=== PATIENT | male | born 1975 | race Caucasian/White ===

== ENCOUNTER 2020-12-03 13:24 | Emergency (ER) | payer OTHER, SELFPAY ==
[2020-12-03] VITALS (22 sets, daily range): BP systolic 117–153; BP diastolic 68–94; PULSE 77–94; RESP 16–24; TEMP 36.7; O2SAT 90–100
--- NOTE | ~2020-12-03 | XR_ITS ---
EXAMINATION: XR chest 1V portable 12/03/2020 14:26 INDICATION: Lower extremity swelling. PROCEDURE: AP portable chest COMPARISON: 10/13/2018 FINDINGS: The lungs are clear. The cardiomediastinal silhouette is within normal limits. There are no pleural effusions. There is no pneumothorax suspected. IMPRESSION: 1: NO ACUTE CARDIOPULMONARY DISEASE. Reviewed, dictated and finalized at location B.
--- NOTE | 2020-12-03 14:16 | PC.NURSE ---
xray at bedside.
--- NOTE | 2020-12-03 14:24 | ED.GENADULT ---
HPI - General Adult General Chief complaint: Extremity Problem,Nontraumatic Stated complaint: ankle swelling Time Seen by Provider: 12/03/20 13:43 Source: patient Mode of arrival: ambulatory Limitations: no limitations History of Present Illness HPI narrative: Patient with history of diabetes and hypertension presents with chief complaint of increased swelling to his lower extremities over the past few weeks. Patient especially over the past 2 to 3 days he has noticed more swelling to his left ankle than his right. Patient denies any pain, erythema or wounds. Patient denies any injuries. Patient states he was not sure what he should do regarding the issues. He denies being on his feet more often. He denies chest pain, shortness of breath, nausea, vomiting, diarrhea, fever, chills. He denies history of CHF or thyroid dysfunction. Related Data Home Medications Medication Instructions Recorded Confirmed carvedilol phosphate 10 mg PO 12/03/20 lisinopril-hydrochlorothiazide tablet PO 12/03/20 pantoprazole 40 PO 12/03/20 Allergies Allergy/AdvReac Type Severity Reaction Status Date / Time No Known Allergies Allergy Unverified 12/03/20 13:32 Review of Systems Review of Systems: Narrative: CONSTITUTIONAL: Denies fever, chills, or sweats. EYES: Denies visual changes, redness, or discharge. ENT: Denies rhinorrhea, congestion, sore throat, or otalgia. CARDIOVASCULAR: Denies chest pain, palpitations, or edema. RESPIRATORY: Denies cough or dyspnea. GASTROINTESTINAL: Denies abdominal pain, nausea, vomiting, or diarrhea. GENITOURINARY: Denies dysuria or hematuria. SKIN: Denies rash or itching. MUSCULOSKELETAL: Reports some ankle swelling denies back pain, myalgia, or joint pain NEUROLOGIC: Denies headache, numbness, dizziness, or weakness. PSYCHIATRIC: Denies anxiety or depression. Exam Narrative: Exam Narrative: GENERAL: Well-appearing, well-nourished. HEAD: Normocephalic, atraumatic. EYES: PERRLA and EOMI. NECK: Supple. No adenopathy or masses. No vertebral tenderness or loss of ROM. CHEST: Clear to auscultation. No respiratory distress. No wheezes rales or rhonchi HEART: Regular rate and rhythm. Normal peripheral pulses. EXTREMITIES: No acute changes in ROM. No erythema or pain. Mild swelling to ankles. No pitting edema. No calf pain. Homans' sign negative. SKIN: Warm, dry, no rash. NEURO: No focal deficits. Alert and oriented x3. PSYCH: Normal mood and affect. Course Vital Signs Vital signs: Vital Signs Temperature 98.1 F 12/03/20 13:28 Pulse Rate 91 12/03/20 13:28 Respiratory Rate 20 12/03/20 13:28 Blood Pressure 146/85 H 12/03/20 13:28 Pulse Oximetry 98 12/03/20 13:28 Temperature 98.1 F 12/03/20 13:28 Pulse Rate 79 12/03/20 16:02 Respiratory Rate 16 12/03/20 16:02 Blood Pressure 117/84 12/03/20 16:02 Pulse Oximetry 98 12/03/20 16:02 Medical Decision Making MDM Narrative Medical decision making narrative: Patient's labs are stable. No signs of renal failure or CHF. Patient does not have any signs of DVT.Patient instructed to follow-up with primary care for further investigation into his symptoms. Vital Signs Vital Signs: Vital Signs Temperature 98.1 F 12/03/20 13:28 Pulse Rate 91 12/03/20 13:28 Respiratory Rate 20 12/03/20 13:28 Blood Pressure 146/85 H 12/03/20 13:28 Pulse Oximetry 98 12/03/20 13:28 Temperature 98.1 F 12/03/20 13:28 Pulse Rate 79 12/03/20 16:02 Respiratory Rate 16 12/03/20 16:02 Blood Pressure 117/84 12/03/20 16:02 Pulse Oximetry 98 12/03/20 16:02 Lab Data Result diagrams: 12/03/20 14:22 12/03/20 14:22 Labs: Lab Results 12/03/20 12/03/20 Range/Units 14:22 14:22 WBC 7.4 (4.5-10.0) K/mm3 RBC 4.80 (4.6-6.20) M/mm3 Hgb 15.3 (14.0-18.0) g/dL Hct 42.3 (42.0-52.0) % MCV 88.1 (80-100) fl MCH 31.9 (26-34) pg MCHC 36.2 H (32-36) g/dl RDW 12.4
[2020-12-03 14:34] LABS: Basophils Absolute Auto 0.1 K/mm3 (0.0-0.1); Basophils Percent Auto 0.7 % (0.2-1.2); Eosinophils Absolute Auto 0.2 K/mm3 (0-0.3); Eosinophils Percent Auto 3.2 % (0-4.4); Hematocrit 42.3 % (42.0-52.0); Hemoglobin 15.3 g/dL (14.0-18.0); Immature Granulocyte Absolute 0.02 K/mm3 (0.00-0.031); Immature Granulocyte Percent A 0.3 % (0-0.5); Lymphocytes Absolute Auto 2.72 K/mm3 (0.9-3.2); Lymphocytes Percent Auto 36.7 % (18.3-44.2); Mean Corpuscular HGB Conc 36.2 g/dl (32-36); Mean Corpuscular Hemoglobin 31.9 pg (26-34); Mean Corpuscular Volume 88.1 fl (80-100); Mean Platelet Volume 9.9 fl (7.4-10.4); Monocytes Absolute Auto 0.6 K/mm3 (0.1-0.6); Monocytes Percent Auto 8.5 % (2.6-8.5); Neutrophils Absolute Auto 3.8 K/mm3 (1.3-6.7); Neutrophils Percent Auto 50.6 % (45.5-73.1); Platelet Count Result 195 k/mm3 (150-375); Red Cell Distribution Width 12.4 % (11.5-14.5); White Blood Count 7.4 K/mm3 (4.5-10.0)
[2020-12-03 14:46] LABS: Alanine Aminotransferase 212 U/L (4-50); Albumin Level 4.7 g/dL (3.5-5.1); Alkaline Phosphatase 66 U/L (38-126); Anion Gap 8 mmol/L (8-16); Aspartate Amino Transferase 122 U/L (17-59); Bilirubin,Total 1.1 mg/dL (0.2-1.3); Blood Urea Nitrogen 13 mg/dL (9-20); Calcium 9.3 mg/dL (8.4-10.2); Carbon Dioxide 29 mmol/L (22-30); Chloride 101 mmol/L (98-107); Estimated CRCL calculation 101 ml/min; Estimated Glomerular Filt Rate > 60; Glucose 211 mg/dL (75-110); Potassium 3.7 mmol/L (3.4-5.0); Sodium 138 mmol/L (137-145)
[2020-12-03 14:54] LABS: NT Pro B Type Natriuretic Pept < 11 PG/ML (5-100)
== END 2020-12-03 16:00 | disposition home or self-care (01) ==
PROVIDERS: Physician Assistant; Emergency Provider Emergency Medicine
DX: R60.0 Localized edema (principal); E11.9 Type 2 diabetes mellitus without complications; I10 Essential (primary) hypertension
CPT/HCPCS: 36415; 71045; 80053; 83880; 84443; 85025; 99283

== ENCOUNTER 2022-02-20 16:52 | Observation (INO) | payer OTHER, SELFPAY ==
[2022-02-20] VITALS (12 sets, daily range): BP systolic 113–154; BP diastolic 69–112; PULSE 73–90; RESP 14–21; TEMP 36.5–36.9; O2SAT 94–99
--- NOTE | ~2022-02-20 | XR_ITS ---
EXAMINATION: XR chest 2V Exam Date/Time: 02/20/2022 17:10 CDT HISTORY: CHEST DISCOMFORT INTO LT SIDE THROAT,SOB,HTN,DIABETES Comparison: 12/03/2020. RESULT: Lines, tubes, and devices: None. Lungs and pleura: Clear. Cardiomediastinal silhouette: Stable cardiomediastinal silhouette. Other: No acute osseous or upper abdominal finding. IMPRESSION: No acute cardiopulmonary process. Reviewed, dictated and finalized at location K.
--- NOTE | ~2022-02-20 | NM_ITS ---
EXAMINATION: NM stress w perf spect multi DATE: 02/21/2022 11:57 INDICATION: Chest pain TECHNIQUE: Rest images were obtained following intravenous administration of 10.2 mCi Tc99m tetrofosm in ([employer]). The patient performed an exercise activity. At peak exercise, 31.7 mCi Tc99m tetrofosmi n ([employer]) was administered intravenously, and stress images were obtained. Data was reconstructed i nto short axis and horizontal and vertical long axis SPECT images. Gated SPECT images were also obtai jason. COMPARISON: None. FINDINGS: There is normal left ventricular perfusion without definite evidence of reversible or fixed perfusion abnormality to suggest ischemia or infarction. There is normal left ventricular chamber size, wall motion and ejection fraction. Left ventricular ejection fraction measures >70%. IMPRESSION: 1. Normal myocardial perfusion at rest and during stress. 2. Left ventricular ejection fraction measuring >70%. Reviewed, dictated and finalized at location A.
--- NOTE | 2022-02-20 16:52 | ECG_ITS ---
Measurements Intervals [place] Rate: 89 P: 30 NH: 171 QRS: -25 QRSD: 102 T: 33 QT: 355 QTc: 432 Interpretive Statements SINUS RHYTHM LEFT ATRIAL ENLARGEMENT LEFTWARD AXIS Electronically Signed On 02-21-2022 11:15:59 CDT by Ar Joseph M.D.
[2022-02-20 17:08] LABS: Basophils Absolute Auto 0.1 K/mm3 (0.0-0.1); Basophils Percent Auto 0.7 % (0.2-1.2); Eosinophils Absolute Auto 0.2 K/mm3 (0-0.3); Eosinophils Percent Auto 2.3 % (0-4.4); Hematocrit 45.4 % (42.0-52.0); Hemoglobin 16.2 g/dL (14.0-18.0); Immature Granulocyte Absolute 0.01 K/mm3 (0.00-0.031); Immature Granulocyte Percent A 0.1 % (0-0.5); Lymphocytes Absolute Auto 3.67 K/mm3 (0.9-3.2); Lymphocytes Percent Auto 41.7 % (18.3-44.2); Mean Corpuscular HGB Conc 35.7 g/dl (32-36); Mean Corpuscular Volume 86.8 fl (80-100); Mean Platelet Volume 9.8 fl (7.4-10.4); Monocytes Absolute Auto 0.7 K/mm3 (0.1-0.6); Monocytes Percent Auto 8.3 % (2.6-8.5); Neutrophils Absolute Auto 4.1 K/mm3 (1.3-6.7); Neutrophils Percent Auto 46.9 % (45.5-73.1); Platelet Count Result 209 k/mm3 (150-375); Red Blood Count 5.23 M/mm3 (4.6-6.20); Red Cell Distribution Width 13.2 % (11.5-14.5); White Blood Count 8.8 K/mm3 (4.5-10.0)
[2022-02-20 17:18] LABS: Alanine Aminotransferase 66 U/L (6-50); Albumin Level 5.2 g/dL (3.5-5.1); Alkaline Phosphatase 74 U/L (38-126); Anion Gap 12 mmol/L (8-16); Aspartate Amino Transferase 38 U/L (17-59); Bilirubin,Total 0.7 mg/dL (0.2-1.3); Blood Urea Nitrogen 14 mg/dL (9-20); Calcium 9.7 mg/dL (8.4-10.2); Carbon Dioxide 24 mmol/L (22-30); Chloride 102 mmol/L (98-107); Estimated Glomerular Filt Rate > 60; Glucose 173 mg/dL (65-110); Lipase 39 U/L (23-300); Potassium 3.9 mmol/L (3.4-5.0); Sodium 138 mmol/L (137-145)
[2022-02-20 17:19] LABS: Prothrombin Time 12.6 Seconds (11.1-14.7)
[2022-02-20 17:20] LABS: Partial Thromboplastin Time 29.3 SECONDS (22.3-36.8)
[2022-02-20 17:29] LABS: Troponin I < 0.012 ng/mL (0.000-0.034)
--- NOTE | 2022-02-20 18:01 | ED.CHESTPAIN ---
HPI - Chest Pain General Chief Complaint: Chest Pain Stated Complaint: CHEST DISCOMFORT/DIZZY FOR ONE WEEK Time Seen by Provider: 02/20/22 17:36 Source: patient and RN notes reviewed Mode of arrival: ambulatory Limitations: no limitations History of Present Illness HPI narrative: This is a 46 year old male with history of dizziness and chest pain. Patient states for past 1.5 weeks he has been having episodes of dizziness and chest tightness. He has episodes that last approximately 20 minutes in which he gets diaphoretic and feels like he is going to pass out. He does not always have chest pain when these events. He is also having midsternal chest pain that radiates to his left shoulder that he describes as tightness. This pain may have at rest, and it is now worse with exertion. He has shortness of breath with these episodes of chest tightness. He denies nausea, vomiting, cough, abdominal pain, melena, leg swelling or calf pain. complaint: chest discomfort Onset (ago): week(s) Related Data Home Medications Medication Instructions Recorded Confirmed lisinopril 20 tablet PO 12/03/20 mg-hydrochlorothiazide 12.5 mg tablet pantoprazole 40 mg tablet,delayed 40 PO 12/03/20 release insulin regular human 100 unit/mL 1 sliding scale dose subcut 02/20/22 02/20/22 injection solution (Novolin R USEASDIRECTD Regular U-100 Insulin) Allergies Allergy/AdvReac Type Severity Reaction Status Date / Time No Known Allergies Allergy Unverified 02/20/22 18:03 Review of Systems Review of Systems: All systems reviewed & are unremarkable except as noted in HPI and below Constitutional: Constitutional: Denies chills, Denies fatigue and Denies fever(s) Eyes: Eyes: Denies change in vision ENT: Denies sore throat Cardiovascular: Cardiovascular: Reports chest pain, Reports radiating jaw, neck or arm pain and Denies slow heart rate Respiratory: Respiratory: Denies chest congestion, Denies cough and Reports dyspnea Gastrointestinal: Gastrointestinal: Denies abdominal pain, Denies bloating, Denies diarrhea, Denies nausea and Denies vomiting Musculoskeletal: Musculoskeletal: Reports back pain Neurologic: Reports dizziness PMFSH Past Medical History Medical History (Updated 02/20/22 @ 20:00 by Emerald Romo MD) Diabetes mellitus Hypertension Course Reevaluation(s) Reevaluation #1: PAtient is agreeable for observation. Dr. Ross agrees to consult. Dr. rosen accepts for observation in IMU. Date: 02/20/22 Time: 19:59 Vital Signs Vital signs: Vital Signs Temperature 98.4 F 02/20/22 17:02 Pulse Rate 90 02/20/22 17:02 Respiratory Rate 14 02/20/22 17:02 Blood Pressure 141/93 H 02/20/22 17:02 Pulse Oximetry 96 02/20/22 17:02 Oxygen Delivery Room Air 02/20/22 17:02 Temperature 98.4 F 02/20/22 17:02 Pulse Rate 89 02/20/22 18:44 Respiratory Rate 21 H 02/20/22 17:52 Blood Pressure 113/81 02/20/22 18:44 Pulse Oximetry 99 02/20/22 17:56 Oxygen Delivery Room Air 02/20/22 17:56 MDM - Chest Pain Lab Data Attestation: I reviewed the patient's lab results. Result diagrams: 02/20/22 17:00 02/20/22 17:00 Labs: Lab Results 02/20/22 02/20/22 02/20/22 Range/Units 17:00 17:00 17:00 WBC 8.8 (4.5-10.0) K/mm3 RBC 5.23 (4.6-6.20) M/mm3 Hgb 16.2 (14.0-18.0) g/dL Hct 45.4 (42.0-52.0) % MCV 86.8 (80-100) fl MCH 31.0 (26-34) pg MCHC 35.7 (32-36) g/dl RDW 13.2 (11.5-14.5) % Plt Count 209 (150-375) k/mm3 MPV 9.8 (7.4-10.4) fl Immature Gran % (Auto) 0.1 (0-0.5) % Neut % (Auto) 46.9 (45.5-73.1) % Lymph % (Auto) 41.7 (18.3-44.2) % Tift % (Auto) 8.3 (2.6-8.5) % Eos % (Auto) 2.3 (0-4.4) % Baso % (Auto) 0.7 (0.2-1.2) % Lymph # (Auto) 3.67 H (0.9-3.2) K/mm3 Tift # (Auto) 0.7 H (0.1-0.6) K/mm3 Eos # (Auto) 0.2 (0-0.3) K/mm3 Baso # (Auto) 0
[2022-02-20 18:23] LABS: Magnesium 2.1 mg/dL (1.6-2.3)
[2022-02-20 18:28] LABS: D Dimer < 0.27 ug/mL (<0.48)
[2022-02-20 20:21] LABS: Troponin I < 0.012 ng/mL (0.000-0.034)
--- NOTE | 2022-02-20 23:12 | PM.IMHP ---
H&P: HPI History of Present Illness Date/Time: 02/20/22 22:30 Chief Complaint: Chest pain Narrative: 46-year-old male with past medical history of hypertension, hyperlipidemia, GERD and prior tobacco use who presented to the ER via private vehicle from home due to chest pain. The patient reports that for the last 1.5 weeks he has been having intermittent at central chest pain that radiates up into his neck and occasionally down into his left arm. He describes the pain is a aching and tightness. He reports that the pain can last 10-15 minutes. He reported that today he did have an episode of cold clammy sweats. He reports that he feels as if his heart is beating hard. He denies any palpitations. He took 2 aspirin at home he does not know the strength. He also got 1 dose of full-dose aspirin in the ER. He has not had any lower extremity swelling. Also reports episodes of a what sounds like lightheadedness as if he may pass out and that his vision changes. He denies is room specifically spinning. He he reports that it he has to stand upper jerk himself to get rid of this sensation. The sensation stated not necessarily company his chest pain. He does snore loudly. He has been using Primatene mist [id number] for or shortness of breath. He denies any cough or congestion. He reports that he had treadmill stress test when he was 27 years old that was normal. He does have history of GERD and has had normal EGD in the past. His primary care provider's mentions that the patient may need to go for repeat EGD given his heartburn symptoms. The patient reports that his current episodes of pain are different than his usual heartburn. He has not been vaccinated for COVID but did have COVID-28 August 2021. Review of Systems Review of Systems: 12 systems were reviewed with pertinent positives and negatives per HPI. Except as documented in the HPI, all other systems were reviewed and are negative. [facility] Past Medical History Medical History (Updated 02/21/22 @ 03:29 by Michelle Fabian DO) Diabetes mellitus GERD (gastroesophageal reflux disease) Hyperlipidemia Hypertension Obesity (BMI 30.0-34.9) Surgical History Surgical History (Updated 02/21/22 @ 03:29 by Michelle Fabian DO) History of esophagogastroduodenoscopy (EGD) (~2015) History of tonsillectomy (~2003) History of uvulopalatopharyngoplasty (~2003) Normal colonoscopy (~2015) Family History Family History Father Liver cancer Mother Multiple sclerosis Sibling Diabetes mellitus Social History Social History (Updated 02/21/22 @ 03:33 by Michelle Fabian DO) Smoking packs per day: 0.5 Smoking cigarettes per day: 10.0 Years smoked: 20 Smoking pack-years: 10.00 Smoking status: Former smoker Additional smoking assessment comments: He smoked 0.5 packs cigarettes per day for 20 years and quit in 2011. Alcohol intake: current Alcohol use details: 0.5 pint per day Substance use: never Additional living arrangements comments: He is single. He does not have any children. 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 Spiritual care concerns: No Meds Home Medications and Allergies Home Medications Medication Instructions Recorded Confirmed Type lisinopril 20 1 tablet PO DAILY 12/03/20 02/20/22 History mg-hydrochlorothiazide 12.5 mg tablet pantoprazole 40 mg tablet,delayed 40 mg PO DAILY 12/03/20 02/20/22 History release epinephrine 0.125 mg/actuation 1 puff inhalation Q4H PRN 02/20/22 02/20/22 History aerosol inhaler (Primatene Mist) Shortness Of Breath Or Wheezing insulin regular human 100 unit/mL 1 sliding scale dose subcut 02/20/22 02/20/22 History injection solution (Novolin R USEASDIRECTD Regular U-100 Insulin) sodium chloride 0.65 % nasal mist 2 spray intranasal DAILY 02/20/22 02/20/22 History Allergies Allergy/AdvR
--- NOTE | 2022-02-20 23:18 | ADMGEN ---
This patient, Luis Fleming, was admitted to IMU Room 209-01. Patient/family oriented to hospital policies and general routines including ID bracelet, bed and alarms, visiting hours, pain management, procedures, bathroom and other care routines, personal items, smoking policy, room service/diet, and visiting hours. Information on how to activate the Rapid Response Team has been discussed. Patient/Family are encouraged to report perceived risks to care and to ask questions if they do not understand what they are told or what they should do.
[2022-02-20 23:27] LABS: Troponin I < 0.012 ng/mL (0.000-0.034)
[2022-02-21] VITALS (8 sets, daily range): BP systolic 106–121; BP diastolic 69–78; PULSE 67–81; RESP 16–20; TEMP 36.5–36.8; O2SAT 99
--- NOTE | 2022-02-21 | EST_ITS ---
Patient Info Name: Luis Fleming Age: 46 years : 1975 Gender: Male Ht: 67 in Wt: 220 lbs BSA: 2.21 m2 HR: 74 bpm BP: 118 / 84 mmHg Heart Rhythm: Sinus Rhythm Exam Date: 02/21/2022 10:42 AM Exam Location: [facility] Stress Patient Status: Outpatient Admit Date: 02/20/2022 Staff Ordering Physician: Michelle Fabian DO Attending Provider: Michelle Fabian DO Exercise Technologist: Sade Saab CT Exercise Physician: Maxime Hankins MD Exam Type: CA stress test treadmill w NM Study Info Indications R07.9 - Chest pain, unspecified A nuclear stress test was performed. Summary 1. Please correlate with nuclear medicine images, reported separately. 2. No abnormal ST-T wave changes with exercise. Protocol: Vipul Stress ECG Details Stage: REST Duration (min): 1 min : 7 sec Speed (mph): 0.0 Grade (%): 0 HR (bpm): 78 SBP (mmHg): 118 DBP (mmHg): 84 METS: --- Stage: REST Duration (min): 15 min : 9 sec Speed (mph): 0.0 Grade (%): 0 HR (bpm): 82 SBP (mmHg): 118 DBP (mmHg): 84 METS: --- Stage: STAGE 1 Duration (min): 1 min : 0 sec Speed (mph): 1.7 Grade (%): 10 HR (bpm): 98 SBP (mmHg): 118 DBP (mmHg): 84 METS: --- Stage: STAGE 1 Duration (min): 2 min : 0 sec Speed (mph): 1.7 Grade (%): 10 HR (bpm): 103 SBP (mmHg): 118 DBP (mmHg): 84 METS: --- Stage: STAGE 1 Duration (min): 3 min : 0 sec Speed (mph): 1.7 Grade (%): 10 HR (bpm): 105 SBP (mmHg): 137 DBP (mmHg): 65 METS: --- Stage: STAGE 2 Duration (min): 1 min : 0 sec Speed (mph): 2.5 Grade (%): 12 HR (bpm): 114 SBP (mmHg): 137 DBP (mmHg): 65 METS: --- Stage: STAGE 2 Duration (min): 2 min : 0 sec Speed (mph): 2.5 Grade (%): 12 HR (bpm): 120 SBP (mmHg): 166 DBP (mmHg): 74 METS: --- Stage: STAGE 2 Duration (min): 3 min : 0 sec Speed (mph): 2.5 Grade (%): 12 HR (bpm): 123 SBP (mmHg): 166 DBP (mmHg): 74 METS: --- Stage: STAGE 3 Duration (min): 1 min : 0 sec Speed (mph): 3.4 Grade (%): 14 HR (bpm): 141 SBP (mmHg): 137 DBP (mmHg): 81 METS: --- Stage: STAGE 3 Duration (min): 2 min : 0 sec Speed (mph): 3.4 Grade (%): 14 HR (bpm): 148 SBP (mmHg): 137 DBP (mmHg): 81 METS: --- Stage: STAGE 3 Duration (min): 3 min : 0 sec Speed (mph): 3.4 Grade (%): 14 HR (bpm): 155 SBP (mmHg): 190 DBP (mmHg): 57 METS: --- Stage: RECOVERY Duration (min): 0 min : 59 sec Speed (mph): 0.0 Grade (%): 0 HR (bpm): 135 SBP (mmHg): 190 DBP (mmHg): 57 METS: --- Stage: RECOVERY Duration (min): 1 min : 59 sec Speed (mph): 0.0 Grade (%): 0 HR (bpm): 118 SBP (mmHg): 190 DBP (mmHg): 57 METS: ---
[2022-02-21] MEDS: FLUTICASONE PROPIONATE 0.05% NA SPR 16 GM BTL (*BKC) 2 SPRAY NASAL ×2 (00:42→09:09)
[2022-02-21 05:32] LABS: Hemoglobin A1C 6.9 % (<5.7)
[2022-02-21 05:37] LABS: LDL Cholesterol Direct 95 mg/dL
[2022-02-21 05:57] LABS: Cholesterol 270 mg/dL (0-200); HDL Direct 32 mg/dL
[2022-02-21 06:01] LABS: Triglycerides 611 mg/dL (<150)
[2022-02-21 08:13] LABS: Glucose Point of Care 183 mg/dl (65-105)
[2022-02-21] MEDS: ASPIRIN 81 MG CHEWABLE TABLET PO (09:08)
[2022-02-21] MEDS: lisinopriL 20 MG TABLET PO (09:08)
[2022-02-21] MEDS: PANTOPRAZOLE 40 MG TABLET PO (09:08)
[2022-02-21] MEDS: hydroCHLOROthiazide 12.5 MG CAPSULE PO (09:08)
[2022-02-21] MEDS: ENOXAPARIN 40 MG/0.4 ML SYRINGE SUB-Q (09:09)
--- NOTE | 2022-02-21 09:12 | PM.CNCAR ---
Assessment and Plan Assessment and plan (1) Chest pain: Code(s): R07.9 - Chest pain, unspecified Status: Acute Assessment and Plan: 46-year-old male with hypertension, diabetes mellitus on insulin, GERD, alcohol abuse. Patient admitted to the hospital with about 10 day history of intermittent chest pain, associated with occasional dizziness, shortness of breath and diaphoresis. EKG does not show any acute ST segment abnormality, serial troponins are negative. His coronary risk factors include hypertension, diabetes mellitus, dyslipidemia/hypertriglyceridemia. -I spoke with patient about further diagnostic options for evaluation of possible ischemic heart disease. He preferred to proceed with exercise MPI to check for any significant myocardial ischemia, which had been already ordered by the primary team. Invasive workup with coronary angiogram will be pursued if MPI shows significant myocardial ischemia. Otherwise, patient can be discharged home later today if MPI is negative or low risk with an outpatient follow-up. -continue aspirin. Add statin (lower dose, liver enzymes elevated) -patient has significant severe hypertriglyceridemia in the setting of diabetes mellitus and alcohol abuse. Patient was advised to cut down on alcohol, and lose weight. Optimal diabetes control. Will repeat lipid panel in the outpatient, and consider adding medications for hypertriglyceridemia as necessary. (2) Hypertension: Code(s): I10 - Essential (primary) hypertension Status: Acute Assessment and Plan: Blood pressure control with current antihypertensives including lisinopril. (3) Type 2 diabetes mellitus with hyperglycemia, with long-term current use of insulin: Code(s): E11.65 - Type 2 diabetes mellitus with hyperglycemia; Z79.4 - lobsterman (current) use of insulin Status: Acute Assessment and Plan: Optimal diabetes control. (4) Alcohol abuse: Code(s): F10.10 - Alcohol abuse, uncomplicated Status: Acute Assessment and Plan: Patient was advised to cut down on alcohol. He verbalized understanding. History of Present Illness History of Present Illness Consult date/time: 02/21/22 09:12 Requesting physician: Emerald Romo MD Consult reason: chest pain and pre-op evaluation Reason For Visit: chest pain Narrative: DATE OF CONSULT: 02/21/2022 REASON FOR CONSULT: Chest pain REQUESTING PHYSICIAN:MD Clarissa CHIEF COMPLAINT: Chest pain, off and on times 10 days HPI: 46-year-old male with hypertension, diabetes mellitus on insulin, GERD, dyslipidemia/hypertriglyceridemia, alcohol abuse Patient presented to [facility] on 02/20/2022 with complaints of chest pain that started about 10 days ago. He describes his chest discomfort as a tight sensation in the upper chest with occasional radiation to the left shoulder area, may happen couple of times a day, each time lasted for 20-30 minutes. His symptoms are associated with occasional shortness of breath and dizziness without syncope. He has occasional diaphoresis as well. He does not think that his symptoms are necessarily worse with exertion. Patient states that he had palpitations associated with chest discomfort, that eventually brought into the hospital. He denies any history of clinical [place], heart failure or any known arrhythmias in the past. Patient states that he was diagnosed with type 2 diabetes about 6 years ago. He denies tobacco, but drinks about half pintt of vodka every day. Patient denies family history of early CAD. EKG on my personal evaluation shows sinus rhythm, leftward axis, no acute ST segment abnormality. Serial troponins negative. BNP unremarkable. D-dimer unremarkable. Chest x-ray unremarkable. TSH and lipase within normal limits. Review of Systems Review of Systems: General: Negative for fever, chills, fatigue Psychological: Positive for anxiety Ophthalmic: negative for loss of vision ENT:
[2022-02-21 12:26] LABS: Glucose Point of Care 213 mg/dl (65-105)
[2022-02-21] MEDS: INSULIN ASPART (*BKC) 100 UNITS/ML SUB-Q (12:49)
--- NOTE | 2022-02-21 13:12 | PM.DS ---
DS: Admitting Diagnosis Discharge Date 02/21/2022 Admitting Diagnosis Chest pain DS: Discharge Diagnosis Discharge Diagnosis (1) Chest pain: Code(s): R07.9 - Chest pain, unspecified Status: Acute Assessment and Plan: The patient's has chest pain med cardiac enzymes have been negative x3. His chest pain has variable variable symptoms some of which sound typical in nature. He has multiple risk factors and as such I have ordered a nuclear medicine treadmill stress test for the patient evaluate for possible underlying ischemia. Will start the patient on a daily 81 mg aspirin. Patient's blood pressure is stable well controlled. (2) Type 2 diabetes mellitus with hyperglycemia, with long-term current use of insulin: Code(s): E11.65 - Type 2 diabetes mellitus with hyperglycemia; Z79.4 - rn long term care (current) use of insulin Status: Acute Assessment and Plan: I Will check hemoglobin A1c with a.m. labs. The patient is on a rather odd sliding scale insulin only Novolin R insulin at home. This will be held for right now. He will be placed on high-dose sliding scale insulin with Accu-Cheks a.c. HS. As well as hypoglycemia protocol. (3) Snoring: Code(s): R06.83 - Snoring Status: Acute (4) Obesity (BMI 30.0-34.9): Code(s): E66.9 - Obesity, unspecified Status: Acute Plan Given the patient's history of obesity and snoring he would benefit from an outpatient polysomnogram. I would of ordered ApneaLink but the patient arrived to IMU too late for apnea link to be applied. DS: Summary Hospital Course Reason for hospitalization: Chief Complaint: Chest pain Narrative: 46-year-old male with past medical history of hypertension, hyperlipidemia, GERD and prior tobacco use who presented to the ER via private vehicle from home due to chest pain.? The patient reports that for the last 1.5 weeks he has been having intermittent at central chest pain that radiates up into his neck and occasionally down into his left arm.? He describes the pain is a aching and tightness.? He reports that the pain can last 10-15 minutes.? He reported that today he did have an episode of cold clammy sweats.? He reports that he feels as if his heart is beating hard.? He denies any palpitations.? He took 2 aspirin at home he does not know the strength.? He also got 1 dose of full-dose aspirin in the ER.? He has not had any lower extremity swelling.? Also reports episodes of a what sounds like lightheadedness as if he may pass out and that his vision changes.? He denies is room specifically spinning.? He he reports that it he has to stand upper jerk himself to get rid of this sensation.? The sensation stated not necessarily company his chest pain.? He does snore loudly.? He has been using Primatene mist [id number] for or shortness of breath.? He denies any cough or congestion.? He reports that he had treadmill stress test when he was 27 years old that was normal.? He does have history of GERD and has had normal EGD in the past.? His primary care provider's mentions that the patient may need to go for repeat EGD given his heartburn symptoms.? The patient reports that his current episodes of pain are different than his usual heartburn. He has not been vaccinated for COVID but did have COVID-28 August 2021. Hospital Course: patient is a 46-year-old male presented with complaint of chest pain, patient had a 3 sets of cardiac enzymes which were negative and was no acute changes on EKG, to further evaluate patient, had cardiac stress test which was essentially normal without any ischemia, patient remains clinically stable will discharge the patient home today, patient was seen by Cardiology and agrees with the plan. Time Spent with Patient Time attestation: Total time spent providing and/or coordinating discharge services: Exam Narrative: Patient is comfortable, NAD HEENT: eyes are clear and none icteric LUNGS:CTA
== END 2022-02-21 14:15 | disposition home or self-care (01) ==
LOC: ANHED 20:00 → ANHIMU 02-21 01:46
PROVIDERS: Emergency Medicine; Admitting Provider Internal Medicine; Emergency Provider General Practice; PCP Registered Nurse; Visit Provider Family Medicine
DX: R07.9 Chest pain, unspecified (principal); E11.65 Type 2 diabetes mellitus with hyperglycemia; R06.83 Snoring; R06.02 Shortness of breath; I10 Essential (primary) hypertension; E78.5 Hyperlipidemia, unspecified; K21.9 Gastro-esophageal reflux disease without esophagitis; F10.10 Alcohol abuse, uncomplicated; E66.9 Obesity, unspecified; Z68.34 Body mass index [BMI] 34.0-34.9, adult; Z87.891 Personal history of nicotine dependence; Z79.4 Long term (current) use of insulin
CPT/HCPCS: 36415; 71046; 78452; 80053; 80061; 82948; 83036; 83690; 83735; 84484; 85025; 85380; 85610; 85730; 93005; 93017; 96372; 99285; A9270; A9502; G0378; J1650; J1815

== ENCOUNTER 2022-05-13 09:38 | Emergency (ER) | payer OTHER, SELFPAY ==
[2022-05-13 09:48] VITALS: BP 126/83; PULSE 84; RESP 16; TEMP 36.7; O2SAT 99
--- NOTE | 2022-05-13 09:52 | ED.URI ---
HPI - URI/Sore Throat General Chief Complaint: Upper Respiratory Infection Stated Complaint: Sore Throat,Headache,Coughing Time Seen by Provider: 05/13/22 09:52 History of Present Illness HPI Narrative: Luis Fleming is a 46 yo male with PMH of HTN, high cholesterol, diabetes, asthma, [facility] cough, some difficulty breathing, feeling hot, chills that started on Sunday patient has asthma that is relatively stable but he has been using his inhaler. His voice is also diminished Related Data Home Medications Medication Instructions Recorded Confirmed lisinopril 20 1 tablet PO DAILY 12/03/20 05/13/22 mg-hydrochlorothiazide 12.5 mg tablet pantoprazole 40 mg tablet,delayed 40 mg PO DAILY 12/03/20 05/13/22 release epinephrine 0.125 mg/actuation 1 puff inhalation Q4H PRN 02/20/22 05/13/22 aerosol inhaler (Primatene Mist) Shortness Of Breath Or Wheezing insulin regular human 100 unit/mL 1 sliding scale dose subcut 02/20/22 05/13/22 injection solution (Novolin R USEASDIRECTD Regular U-100 Insulin) sodium chloride 0.65 % nasal mist 2 spray intranasal DAILY 02/20/22 05/13/22 Allergies Allergy/AdvReac Type Severity Reaction Status Date / Time No Known Allergies Allergy Unverified 05/13/22 10:01 Review of Systems Review of Systems: CONSTITUTIONAL: Subjective fever, chills, sweats. EYES: Denies visual changes, redness, discharge. ENT: Denies rhinorrhea, has congestion, has sore throat, otalgia. CARDIOVASCULAR: Denies chest pain, palpitations, edema. RESPIRATORY: Mild dyspnea, wheezing, has cough GASTROINTESTINAL: Denies abdominal pain, nausea, vomiting, diarrhea. GENITOURINARY: Denies dysuria, hematuria, abnormal discharge SKIN: Denies rash or itching. NEUROLOGIC: Denies numbness, or focal weakness. PSYCHIATRIC: Denies anxiety or depression. [facility] Past Medical History Medical History Diabetes mellitus GERD (gastroesophageal reflux disease) Hyperlipidemia Hypertension Obesity (BMI 30.0-34.9) Surgical History Surgical History History of esophagogastroduodenoscopy (EGD) (~2015) History of tonsillectomy (~2003) History of uvulopalatopharyngoplasty (~2003) Normal colonoscopy (~2015) Family History Family History Father Liver cancer Mother Multiple sclerosis Sibling Diabetes mellitus Social History Social History Smoking packs per day: 0.5 Smoking cigarettes per day: 10.0 Years smoked: 20 Smoking pack-years: 10.00 Smoking status: Former smoker Additional smoking assessment comments: He smoked 0.5 packs cigarettes per day for 20 years and quit in 2011. Alcohol intake: current Alcohol use details: 0.5 pint per day Substance use: never Additional living arrangements comments: He is single. He does not have any children. 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 Spiritual care concerns: No Comments At time of signature, I agree with nursing past medical, surgical, social and family history. There is no relevant family history pertinent to the presenting complaint. Exam Narrative: GENERAL: This is a well-nourished, well-developed patient, in moderate distress. HEAD: normocephalic, atraumatic. EYES: Sclera clear/white. Vision is grossly intact. EARS: External ears normal, auditory canals clear and without drainage, TMs normal without perforation. Hearing grossly intact. NOSE: External nose normal without nasal discharge, nares without redness, has rhinorrhea. THROAT: Mucous membranes moist, posterior pharynx erythema no exudate NECK: Neck supple, non-tender CARDIOVASCULAR: Regular rate and rhythm without murmurs, gallops, or rubs. RESPIRATORY: Diminished to auscultation. Breath sounds equal bilat
== END 2022-05-13 10:15 | disposition home or self-care (01) ==
PROVIDERS: Emergency Provider Nurse Practitioner; PCP Registered Nurse
DX: J40 Bronchitis, not specified as acute or chronic (principal); Z87.891 Personal history of nicotine dependence; E11.9 Type 2 diabetes mellitus without complications; K21.9 Gastro-esophageal reflux disease without esophagitis; E78.5 Hyperlipidemia, unspecified; I10 Essential (primary) hypertension; E66.9 Obesity, unspecified; Z68.33 Body mass index [BMI] 33.0-33.9, adult; J45.909 Unspecified asthma, uncomplicated
CPT/HCPCS: 99213; G0463

== ENCOUNTER 2022-06-09 13:01 | Emergency (ER) | payer OTHER, SELFPAY ==
[2022-06-09] VITALS (47 sets, daily range): BP systolic 117–163; BP diastolic 81–127; PULSE 83–92; RESP 16–20; TEMP 36.4; O2SAT 84–100
--- NOTE | ~2022-06-09 | XR_ITS ---
EXAMINATION: XR chest 2V 06/09/2022 13:24 INDICATION: Midsternal chest pain PROCEDURE: 2 view chest COMPARISON: Comparison to multiple prior studies sequentially, with oldest reviewed study dated 11/2018. FINDINGS: The lungs are clear. The cardiomediastinal silhouette is within normal limits. There are no pleural effusions. There is no pneumothorax suspected. IMPRESSION: 1: NO ACUTE CARDIOPULMONARY DISEASE. Reviewed, dictated and finalized at location B.
--- NOTE | ~2022-06-09 | CT_ITS ---
EXAMINATION: CT abdomen pelvis w con DATE: 06/09/2022 15:21 INDICATION: Epigastric abdominal pain. TECHNIQUE: Computed tomography (CT) of the abdomen and pelvis was performed with 100 mL Omnipaque 350 intravenous contrast. Automated exposure control and iterative reconstruction technique were employe d. The dose-length product was 751.12 mGy-cm. COMPARISON: None. FINDINGS: The visualized portions of the lung bases are clear without pneumonia or pleural effusion. The heart size is normal. No pericardial effusion. There is diffuse hepatic steatosis. The gallbladde r, spleen, pancreas, adrenal glands, and kidneys are normal. There is a 3.0 x 2.9 cm mass anterior to the pancreas abutting the inferior body of the stomach with attenuation of 20 HU. There are no dilat ed loops of bowel. The appendix is normal. There are no pathologically enlarged lymph nodes. There is no free intraperitoneal fluid. There is mild thoracolumbar spondylosis. IMPRESSION: 1. 3.0 cm mass anterior to the pancreas abutting the inferior body of the stomach. The differential d iagnosis includes gastrointestinal stromal tumor, pseudocyst, and lymphoma. Abdomen MRI without and w ith contrast is recommended. Reviewed, dictated and finalized at location A. IMPRESSION: 1. 3.0 cm mass anterior to the pancreas abutting the inferior body of the stoma ch. The differential diagnosis includes gastrointestinal stromal tumor, pseudoc yst, and lymphoma. Abdomen MRI without and with contrast is recommended.
--- NOTE | 2022-06-09 13:02 | ECG_ITS ---
Measurements Intervals [place] Rate: 91 P: 24 PA: 136 QRS: -3 QRSD: 100 T: 9 QT: 358 QTc: 441 Interpretive Statements SINUS RHYTHM BORDERLINE R WAVE PROGRESSION, ANTERIOR LEADS CONSIDER INFERIOR INFARCT, AGE INDETERMINATE BASELINE WANDER- AVF, V3-V6 ABNORMAL ECG COMPARED TO ECG 02/20/2022 16:57:42 NO SIGNIFICANT CHANGES Electronically Signed On 06-09-2022 13:35:56 CDT by Oscar Lee D.O.
--- NOTE | 2022-06-09 13:45 | ED.GENADULT ---
HPI - General Adult General Chief complaint: Chest Pain Stated complaint: epigastric pain Time Seen by Provider: 06/09/22 13:23 Source: patient Mode of arrival: ambulatory Limitations: no limitations History of Present Illness HPI narrative: 46 years old white male presents with epigastric pain, mild, intermittent over 1 month, got worse this morning. Patient report aggravation with any movement, slightly better laying down. He denies any fever, chills, nausea, vomiting, diarrhea, constipation. History of diabetes, hypertension, alcohol abuse, daily. History of pancreatitis. Related Data Home Medications Medication Instructions Recorded Confirmed lisinopril 20 1 tablet PO DAILY 12/03/20 05/13/22 mg-hydrochlorothiazide 12.5 mg tablet pantoprazole 40 mg tablet,delayed 40 mg PO DAILY 12/03/20 05/13/22 release epinephrine 0.125 mg/actuation 1 puff inhalation Q4H PRN 02/20/22 05/13/22 aerosol inhaler (Primatene Mist) Shortness Of Breath Or Wheezing insulin regular human 100 unit/mL 1 sliding scale dose subcut 02/20/22 05/13/22 injection solution (Novolin R USEASDIRECTD Regular U-100 Insulin) sodium chloride 0.65 % nasal mist 2 spray intranasal DAILY 02/20/22 05/13/22 Allergies Allergy/AdvReac Type Severity Reaction Status Date / Time No Known Allergies Allergy Unverified 05/13/22 10:01 Review of Systems Review of Systems: All systems reviewed & are unremarkable except as noted in HPI and below PMFSH Past Medical History Medical History Diabetes mellitus GERD (gastroesophageal reflux disease) Hyperlipidemia Hypertension Obesity (BMI 30.0-34.9) Surgical History Surgical History History of esophagogastroduodenoscopy (EGD) (~2015) History of tonsillectomy (~2003) History of uvulopalatopharyngoplasty (~2003) Normal colonoscopy (~2015) Family History Family History Father Liver cancer Mother Multiple sclerosis Sibling Diabetes mellitus Social History Social History Smoking packs per day: 0.5 Smoking cigarettes per day: 10.0 Years smoked: 20 Smoking pack-years: 10.00 Smoking status: Former smoker Additional smoking assessment comments: He smoked 0.5 packs cigarettes per day for 20 years and quit in 2011. Alcohol intake: current Alcohol use details: 0.5 pint per day Substance use: never Additional living arrangements comments: He is single. He does not have any children. 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 Spiritual care concerns: No Exam Narrative: General appearance: Well-developed, well-nourished Skin: Normal color Head: Normocephalic, nontraumatic Eyes: Clear conjunctiva ENT: Oropharynx normal, ears normal, nose normal Neck: Supple, nontender Chest and respiratory: Airway patent, no respiratory distress, no accessory muscle use Heart: Regular rate/rhythm Abdomen: Soft, severe tenderness epigastric and right lower quadrant, no organomegaly, quiet bowel sounds Vascular: Normal peripheral pulses, normal capillary refill. Musculoskeletal: Normal range of motion, nontender back Neurologic: Alert and oriented ?3, GRAPHICS SPECIALIST is normal as tested, no gross motor deficit Course Consultations Consultation #1: No GI available in our hospital today Date: 06/09/22 Time: 17:33 Consultation #2: , the chief resident at [facility] who accepted patient transfer to Dr. Rodriguez Date: 06/09/22 Time: 17:34 Vital Signs Vital signs: Mary Kate
[2022-06-09] MEDS: ASPIRIN 81 MG CHEWABLE TABLET 324 MG PO (14:11)
[2022-06-09] MEDS: SODIUM CHLORIDE 0.9% IV 1,000 ML 999 ML IV CONT (14:12)
[2022-06-09 14:20] LABS: Basophils Percent Auto 0.7 % (0.2-1.2); Eosinophils Absolute Auto 0.2 K/mm3 (0-0.3); Eosinophils Percent Auto 2.9 % (0-4.4); Hematocrit 44.3 % (42.0-52.0); Hemoglobin 15.8 g/dL (14.0-18.0); Immature Granulocyte Absolute 0.01 K/mm3 (0.00-0.031); Immature Granulocyte Percent A 0.2 % (0-0.5); Lymphocytes Absolute Auto 2.24 K/mm3 (0.9-3.2); Lymphocytes Percent Auto 40.9 % (18.3-44.2); Mean Corpuscular HGB Conc 35.7 g/dl (32-36); Mean Corpuscular Hemoglobin 31.1 pg (26-34); Mean Corpuscular Volume 87.2 fl (80-100); Mean Platelet Volume 10.3 fl (7.4-10.4); Monocytes Absolute Auto 0.4 K/mm3 (0.1-0.6); Monocytes Percent Auto 7.7 % (2.6-8.5); Neutrophils Absolute Auto 2.6 K/mm3 (1.3-6.7); Neutrophils Percent Auto 47.6 % (45.5-73.1); Platelet Count Result 173 k/mm3 (150-375); Red Blood Count 5.08 M/mm3 (4.6-6.20); Red Cell Distribution Width 13.2 % (11.5-14.5); White Blood Count 5.5 K/mm3 (4.5-10.0)
[2022-06-09 14:31] LABS: Alanine Aminotransferase 53 U/L (6-50); Albumin Level 5.1 g/dL (3.5-5.1); Alkaline Phosphatase 59 U/L (38-126); Anion Gap 15 mmol/L (8-16); Aspartate Amino Transferase 40 U/L (17-59); Bilirubin,Total 0.9 mg/dL (0.2-1.3); Blood Urea Nitrogen 9 mg/dL (9-20); Calcium 9.5 mg/dL (8.4-10.2); Carbon Dioxide 25 mmol/L (22-30); Chloride 100 mmol/L (98-107); Estimated CRCL calculation 109 ml/min; Estimated Glomerular Filt Rate > 60; Glucose 169 mg/dL (65-110); Lipase 23 U/L (23-300); Potassium 3.7 mmol/L (3.4-5.0); Prothrombin Time 12.8 Seconds (11.1-14.7); Sodium 140 mmol/L (137-145)
[2022-06-09 14:41] LABS: Troponin I < 0.012 ng/mL (0.000-0.034)
[2022-06-09 17:58] LABS: Troponin I < 0.012 ng/mL (0.000-0.034)
--- NOTE | 2022-06-09 18:39 | PC.NURSE ---
1652 waiting on bed 1814 Rm 327 [facility] 1814 [facility] called for BLS transfer 1818 [place] [facility] passed 21p 1819 [facility] [id number] 1833 [facility] accepted BLS transfer to [facility] ETA 20p Trip #[id number] No Acknowledgment from Rm/Rm cancelled
--- NOTE | 2022-06-09 20:19 | PC.NURSE ---
patient transferred with [facility]
[2022-06-09 20:26] LABS: Troponin I < 0.012 ng/mL (0.000-0.034)
== END 2022-06-09 20:19 | disposition short-term general hospital (02) ==
PROVIDERS: Emergency Provider Emergency Medicine; PCP Registered Nurse
DX: K86.9 Disease of pancreas, unspecified (principal); R10.9 Unspecified abdominal pain; I10 Essential (primary) hypertension; E11.9 Type 2 diabetes mellitus without complications; F10.10 Alcohol abuse, uncomplicated; K21.9 Gastro-esophageal reflux disease without esophagitis; E78.5 Hyperlipidemia, unspecified; Z79.4 Long term (current) use of insulin; Z87.891 Personal history of nicotine dependence; Z79.51 Long term (current) use of inhaled steroids; Z79.82 Long term (current) use of aspirin
CPT/HCPCS: 36415; 71046; 74177; 80053; 83690; 84484; 85025; 85610; 85730; 93005; 96360; 99285; A9270; J7030; Q9967

== ENCOUNTER 2022-06-15 09:38 | Emergency (ER) | payer OTHER, SELFPAY ==
[2022-06-15] VITALS (9 sets, daily range): BP systolic 125–149; BP diastolic 81–93; PULSE 72–85; RESP 14–22; TEMP 36.6; O2SAT 97–100
--- NOTE | ~2022-06-15 | CT_ITS ---
EXAMINATION: CT brain wo con DATE: 06/15/2022 12:39 INDICATION: Dizziness TECHNIQUE: Computed tomography (CT) of the head was performed without intravenous contrast. Sagittal and coronal reconstructions were performed. The mA was adjusted according to patient size. Iterative reconstruction technique was employed. The dose-length product was 605.33 mGy-cm. COMPARISON: head CT dated 09/17/2018 FINDINGS: No acute intracranial hemorrhage, acute infarction or abnormal extra axial fluid collection. Ventricl es are normal and symmetric. No mass/mass effect. The orbits, paranasal sinuses and mastoid air cells are normal. 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 IMPRESSION: 1. Normal brain. Reviewed, dictated and finalized at location A. IMPRESSION: 1. Normal brain.
--- NOTE | ~2022-06-15 | XR_ITS ---
EXAMINATION: XR chest 1V DATE: 06/15/2022 12:45 INDICATION: Dizziness TECHNIQUE: frontal view of the chest was obtained. COMPARISON: Chest radiograph dated 06/09/2022 FINDINGS: The lungs remain clear with no focal airspace opacities, pulmonary edema, pleural effusion or pneumot horax. The cardiomediastinal silhouette is normal. Visualized bones and soft tissues are unremarkable . IMPRESSION: 1. No acute cardiopulmonary disease. Reviewed, dictated and finalized at location A.
--- NOTE | 2022-06-15 11:45 | ECG_ITS ---
Measurements Intervals [place] Rate: 82 P: 9 ID: [id number] QRS: -9 QRSD: 106 T: -4 QT: 387 QTc: 454 Interpretive Statements SINUS RHYTHM NONSPECIFIC ST-T WAVE ABNORMALITIES COMPARED TO ECG 06/09/2022 13:07:38 NO SIGNFICANT CHANGES Electronically Signed On 06-15-2022 17:32:15 CDT by Harrison Azevedo M.D.
[2022-06-15 12:01] LABS: Basophils Percent Auto 0.5 % (0.2-1.2); Eosinophils Absolute Auto 0.1 K/mm3 (0-0.3); Eosinophils Percent Auto 2.4 % (0-4.4); Hematocrit 45.3 % (42.0-52.0); Hemoglobin 15.9 g/dL (14.0-18.0); Immature Granulocyte Absolute 0.03 K/mm3 (0.00-0.031); Immature Granulocyte Percent A 0.5 % (0-0.5); Lymphocytes Absolute Auto 2.39 K/mm3 (0.9-3.2); Lymphocytes Percent Auto 41.8 % (18.3-44.2); Mean Corpuscular HGB Conc 35.1 g/dl (32-36); Mean Corpuscular Hemoglobin 31.1 pg (26-34); Mean Corpuscular Volume 88.5 fl (80-100); Mean Platelet Volume 10.1 fl (7.4-10.4); Monocytes Absolute Auto 0.5 K/mm3 (0.1-0.6); Neutrophils Absolute Auto 2.7 K/mm3 (1.3-6.7); Neutrophils Percent Auto 46.8 % (45.5-73.1); Platelet Count Result 183 k/mm3 (150-375); Red Blood Count 5.12 M/mm3 (4.6-6.20); Red Cell Distribution Width 13.3 % (11.5-14.5); White Blood Count 5.7 K/mm3 (4.5-10.0)
[2022-06-15 12:11] LABS: Alanine Aminotransferase 59 U/L (6-50); Albumin Level 5.2 g/dL (3.5-5.1); Alkaline Phosphatase 62 U/L (38-126); Anion Gap 16 mmol/L (8-16); Aspartate Amino Transferase 33 U/L (17-59); Bilirubin,Total 0.7 mg/dL (0.2-1.3); Blood Urea Nitrogen 8 mg/dL (9-20); Calcium 9.9 mg/dL (8.4-10.2); Carbon Dioxide 25 mmol/L (22-30); Chloride 100 mmol/L (98-107); Estimated CRCL calculation 109 ml/min; Estimated Glomerular Filt Rate > 60; Glucose 161 mg/dL (65-110); Potassium 4.1 mmol/L (3.4-5.0); Sodium 141 mmol/L (137-145)
--- NOTE | 2022-06-15 12:26 | ED.GENADULT ---
HPI - General Adult General Chief complaint: Dizziness Stated complaint: dizzy Time Seen by Provider: 06/15/22 12:00 Source: RN notes reviewed History of Present Illness HPI narrative: Patient presents emergency department from work for dizziness. Patient states he is seen as this is when he went again to feel dizzy states that he felt lightheaded and like his head was just, fall down on the desk states that since that time he had intermittent episodes of dizziness he states that this is worse with movement he denies any fevers or chills chest pain shortness of breath nausea vomiting or diarrhea states he was diagnosed with a abdominal mass last week and he supposed be getting further testing at the end of this month he states that he has been having chronic pain in the upper abdomen over the past several weeks and has been diagnosed last week with the mass denies any numbness or tingling in the extremities Related Data Home Medications Medication Instructions Recorded Confirmed lisinopril 20 1 tablet PO DAILY 12/03/20 05/13/22 mg-hydrochlorothiazide 12.5 mg tablet pantoprazole 40 mg tablet,delayed 40 mg PO DAILY 12/03/20 05/13/22 release insulin regular human 100 unit/mL 1 sliding scale dose subcut 02/20/22 05/13/22 injection solution (Novolin R USEASDIRECTD Regular U-100 Insulin) Allergies Allergy/AdvReac Type Severity Reaction Status Date / Time No Known Allergies Allergy Unverified 06/15/22 11:45 Review of Systems Review of Systems: Gen.: Denies fevers or chills Eyes: Denies eye pain or visual change ENT: Denies congestion Respiratory: Denies shortness of breath or cough CV: Denies chest pain or palpitations GI: D reports abdominal mass with chronic upper abdominal pain, denies nausea, emesis or diarrhea Musculoskeletal: Denies back pain or muscle pain Neuro: See HPI Skin: Denies rash Except as documented, all other systems reviewed and negative [facility] Past Medical History Medical History Diabetes mellitus GERD (gastroesophageal reflux disease) Hyperlipidemia Hypertension Obesity (BMI 30.0-34.9) Surgical History Surgical History History of esophagogastroduodenoscopy (EGD) (~2016) History of tonsillectomy (~2003) History of uvulopalatopharyngoplasty (~2003) Normal colonoscopy (~2015) Family History Family History Father Liver cancer Mother Multiple sclerosis Sibling Diabetes mellitus Social History Social History Smoking packs per day: 0.5 Smoking cigarettes per day: 10.0 Years smoked: 20 Smoking pack-years: 10.00 Smoking status: Former smoker Additional smoking assessment comments: He smoked 0.5 packs cigarettes per day for 20 years and quit in 2011. Alcohol intake: current Alcohol use details: 0.5 pint per day Substance use: never Additional living arrangements comments: He is single. He does not have any children. 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 Spiritual care concerns: No Exam Narrative: APPEARANCE: No acute distress, nontoxic, resting in bed HEENT: Normocephalic, atraumatic, OMM, TMs clear bilaterally EYES: PERRL, EOMI NECK: Supple, nontender, full range of motion without pain, no meningismus RESPIRATORY: No respiratory distress, clear to auscultation bilaterally with no rhonchi wheezing or rales CARDIOVASCULAR: RRR s murmur ABDOMINAL: Soft, nondistended mild tenderness in epigastric right upper quadrant left upper quadrant tenderness right lower quadrant left lower quadrant no rebound or guarding MUSCULOSKELETAL: Moves all extremities. No clubbing, cyanosis or edema. NEURO: A and O ?3, following commands, speech normal, cranial nerves II through XII grossly intact,muscle strength 5 out of 5 bilateral
[2022-06-15] MEDS: MECLIZINE HCL 25 MG TABLET PO (13:29)
[2022-06-15] MEDS: SODIUM CHLORIDE 0.9% IV 1,000 ML 999 ML IV CONT (13:29)
[2022-06-15 13:55] LABS: Appearance Urine Clear (Clear); Bilirubin Urine Negative (Negative); Blood Urine Negative (Negative); Color Urine Yellow (Yellow); Glucose Urine UA Negative (Negative); Ketones Urine Negative (Negative); Leukocyte Esterase Ur Negative LEU/UL (Negative); Nitrate Urine Negative (Negative); Protein Urine Negative (Negative); Specific Grav Ur 1.015 (1.001-1.035); Urobilinogen Urine 0.2 mg/dL (<2.0)
[2022-06-15 13:57] LABS: Add Urine Microscopic? NO
[2022-06-15 14:02] LABS: Troponin I < 0.012 ng/mL (0.000-0.034)
[2022-06-15 15:42] LABS: Troponin I < 0.012 ng/mL (0.000-0.034)
== END 2022-06-15 16:28 | disposition home or self-care (01) ==
PROVIDERS: Emergency Medicine; Emergency Provider Emergency Medicine; PCP Registered Nurse
DX: R42 Dizziness and giddiness (principal); E11.9 Type 2 diabetes mellitus without complications; E78.5 Hyperlipidemia, unspecified; I10 Essential (primary) hypertension; K21.9 Gastro-esophageal reflux disease without esophagitis; E66.9 Obesity, unspecified; Z68.32 Body mass index [BMI] 32.0-32.9, adult; Z79.4 Long term (current) use of insulin; Z87.891 Personal history of nicotine dependence; R94.31 Abnormal electrocardiogram [ECG] [EKG]
CPT/HCPCS: 36415; 70450; 71045; 80053; 81003; 84484; 85025; 93005; 96360; 96361; 99284; A9270; J7030

== ENCOUNTER 2022-07-19 18:03 | Emergency (ER) | payer OTHER, SELFPAY ==
[2022-07-19 20:03] VITALS: BP 135/78; PULSE 83; RESP 14; TEMP 36.9; O2SAT 99
[2022-07-19 21:41] VITALS: BP 129/91; PULSE 76; RESP 16; O2SAT 97
[2022-07-19 21:48] LABS: Basophils Absolute Auto 0.1 K/mm3 (0.0-0.1); Basophils Percent Auto 0.7 % (0.2-1.2); Eosinophils Absolute Auto 0.3 K/mm3 (0-0.3); Eosinophils Percent Auto 3.6 % (0-4.4); Hematocrit 40.9 % (42.0-52.0); Hemoglobin 14.7 g/dL (14.0-18.0); Immature Granulocyte Absolute 0.02 K/mm3 (0.00-0.031); Immature Granulocyte Percent A 0.2 % (0-0.5); Lymphocytes Absolute Auto 3.44 K/mm3 (0.9-3.2); Lymphocytes Percent Auto 41.6 % (18.3-44.2); Mean Corpuscular HGB Conc 35.9 g/dl (32-36); Mean Corpuscular Hemoglobin 30.9 pg (26-34); Mean Corpuscular Volume 86.1 fl (80-100); Mean Platelet Volume 9.8 fl (7.4-10.4); Monocytes Absolute Auto 0.6 K/mm3 (0.1-0.6); Monocytes Percent Auto 7.3 % (2.6-8.5); Neutrophils Absolute Auto 3.8 K/mm3 (1.3-6.7); Neutrophils Percent Auto 46.6 % (45.5-73.1); Platelet Count Result 188 k/mm3 (150-375); Red Blood Count 4.75 M/mm3 (4.6-6.20); Red Cell Distribution Width 12.8 % (11.5-14.5); White Blood Count 8.3 K/mm3 (4.5-10.0)
[2022-07-19 21:58] LABS: Alanine Aminotransferase 50 U/L (6-50); Albumin Level 5.2 g/dL (3.5-5.1); Alkaline Phosphatase 64 U/L (38-126); Anion Gap 15 mmol/L (8-16); Aspartate Amino Transferase 37 U/L (17-59); Bilirubin,Total 0.9 mg/dL (0.2-1.3); Blood Urea Nitrogen 13 mg/dL (9-20); Calcium 9.3 mg/dL (8.4-10.2); Carbon Dioxide 23 mmol/L (22-30); Chloride 99 mmol/L (98-107); Estimated CRCL calculation 108 ml/min; Estimated Glomerular Filt Rate > 60; Glucose 153 mg/dL (65-110); Potassium 3.4 mmol/L (3.4-5.0); Sodium 137 mmol/L (137-145)
--- NOTE | 2022-07-19 22:07 | ED.RECABL ---
HPI - Recheck/Abnormal Lab/Rx General Chief Complaint: Recheck/Abnormal Lab/Rx <Libby Solorzano PA-C - Last Filed: 07/19/22 22:12> Stated Complaint: hypertension on home machine- denies any symptoms <Libby Solorzano PA-C - Last Filed: 07/19/22 22:12> Time Seen by Provider: 07/19/22 21:32 <Libby Solorzano PA-C - Last Filed: 07/19/22 22:12> Source: patient <Libby Solorzano PA-C - Last Filed: 07/19/22 22:12> Mode of arrival: ambulatory <CHICO Redding Last Filed: 07/19/22 22:12> Limitations: no limitations <Libby Solorzano PA-C - Last Filed: 07/19/22 22:12> History of Present Illness HPI narrative: This is a 47-year-old male that presents to the emergency department for hypertension. Has known history of hypertension. He takes lisinopril/HCTZ for this. Reports he has been taking his blood pressure recently and has noted that it has been elevated. He spoke with his primary about this and has been doubling his medication the last couple of days. This afternoon when he took his blood pressure it was elevated to the 170s systolic which prompted him to be seen. He has no symptoms with this. Denies headache, chest pain, shortness of breath, or focal numbness or weakness. <Libby Solorzano PA-C - Last Filed: 07/19/22 22:12> Related Data Home Medications: Home Medications Medication Instructions Recorded Confirmed lisinopril 20 1 tablet PO DAILY 12/03/20 05/13/22 mg-hydrochlorothiazide 12.5 mg tablet pantoprazole 40 mg tablet,delayed 40 mg PO DAILY 12/03/20 05/13/22 release insulin regular human 100 unit/mL 1 sliding scale dose subcut 02/20/22 05/13/22 injection solution (Novolin R USEASDIRECTD Regular U-100 Insulin) <CHICO Redding Last Filed: 07/19/22 22:12> Allergies/Adverse Reactions: Allergies Allergy/AdvReac Type Severity Reaction Status Date / Time No Known Allergies Allergy Verified 07/19/22 21:57 <Libby Solorzano PA-C - Last Filed: 07/19/22 22:12> Review of Systems Review of Systems: CONSTITUTIONAL: Denies fever EYES: Denies visual changes CARDIOVASCULAR: Denies chest pain, or edema. RESPIRATORY: Denies dyspnea. GASTROINTESTINAL: Denies vomiting SKIN: Denies rash NEUROLOGIC: Denies headache, numbness, or weakness. <Libby Solorzano PA-C - Last Filed: 07/19/22 22:12> All systems reviewed & are unremarkable except as noted in HPI and below <Libby Solorzano PA-C - Last Filed: 07/19/22 22:12> [facility] Past Medical History Medical History: Medical History Diabetes mellitus GERD (gastroesophageal reflux disease) Hyperlipidemia Hypertension Obesity (BMI 30.0-34.9) <Libby Solorzano PA-C - Last Filed: 07/19/22 22:12> Surgical History Surgical History: Surgical History History of esophagogastroduodenoscopy (EGD) (~2015) History of tonsillectomy (~2003) History of uvulopalatopharyngoplasty (~2003) Normal colonoscopy (~2015) <Libby Solorzano PA-C - Last Filed: 07/19/22 22:12> Family History Family History: Family History Father Liver cancer Mother Multiple sclerosis Sibling Diabetes mellitus <CHICO Redding Last Filed: 07/19/22 22:12> Social History Social History: Social History Smoking packs per day: 0.5 Smoking cigarettes per day: 10.0 Years smoked: 20 Smoking pack-years: 10.00 Smoking status: Former smoker Additional smoking assessment comments: He smoked 0.5 packs cigarettes per day for 20 years and quit in 2011. Alcohol intake: current Alcohol use details: 0.5 pint per day Substance use: never Additional living arrangements comments: He is single. He does not have any children. Additional occupation/education comments: He works [email or web address]
[2022-07-19 22:23] VITALS: BP 128/88; PULSE 82; RESP 16; O2SAT 99
== END 2022-07-19 22:44 | disposition home or self-care (01) ==
PROVIDERS: Emergency Medicine; Emergency Provider Emergency Medicine; PCP Registered Nurse
DX: I10 Essential (primary) hypertension (principal); E11.9 Type 2 diabetes mellitus without complications; E78.5 Hyperlipidemia, unspecified; K21.9 Gastro-esophageal reflux disease without esophagitis; E66.9 Obesity, unspecified; Z68.32 Body mass index [BMI] 32.0-32.9, adult; Z87.891 Personal history of nicotine dependence; Z79.4 Long term (current) use of insulin
CPT/HCPCS: 36415; 80053; 85025; 99283

== ENCOUNTER 2023-06-29 17:10 | Emergency (ER) | payer OTHER, SELFPAY ==
--- NOTE | ~2023-06-29 | XR_ITS ---
EXAMINATION: XR hand RT min 3V INDICATION: Right hand pain, dog bite TECHNIQUE: Three views of the right hand are obtained. COMPARISON: None available FINDINGS: Bone alignment is normal. There is no fracture. There is soft tissue swelling of the hand n ear the fifth metacarpal. There is mild osteoarthritis of multiple interphalangeal joints. No radiopa que foreign body is identified. IMPRESSION: 1. No acute osseous abnormality. Reviewed, dictated and finalized at location F.
[2023-06-29 17:31] VITALS: BP 145/90; PULSE 94; RESP 18; TEMP 36.4; O2SAT 97
--- NOTE | 2023-06-29 18:52 | ED.ANIMALBIT ---
HPI - Animal Bite General Chief Complaint: Animal Bite Stated Complaint: hand injury after breaking up dog fight Time Seen by Provider: 06/29/23 18:25 Source: patient Mode of arrival: ambulatory Limitations: no limitations History of Present Illness HPI narrative: Patient is a 47-year-old male who presents to the ED with report of a dog bite to his right hand. Patient reports he is currently dog sitting his neighbors dogs and states they got into a fight over a treat today. He tried to break up a fight and states one of the dogs clamped down on his right hand. He sustained a puncture wound/laceration in the webspace between his third and fourth digits on his dorsal right hand. Complains of pain in this area extending laterally. Denies any numbness or tingling. Tetanus up-to-date. Patient believes the dogs are up-to-date on their vaccines. Related Data Home Medications Medication Instructions Recorded Confirmed lisinopril 20 1 tablet PO DAILY 12/03/20 05/13/22 mg-hydrochlorothiazide 12.5 mg tablet pantoprazole 40 mg tablet,delayed 40 mg PO DAILY 12/03/20 05/13/22 release insulin regular human 100 unit/mL 1 sliding scale dose subcut 02/20/22 05/13/22 injection solution (Novolin R USEASDIRECTD Regular U-100 Insulin) Allergies Allergy/AdvReac Type Severity Reaction Status Date / Time No Known Allergies Allergy Verified 06/29/23 18:20 Review of Systems Review of Systems: CONSTITUTIONAL: Denies fever, chills, or sweats. SKIN: See HPI. MUSCULOSKELETAL: See HPI. NEUROLOGIC: Denies tingling, numbness, or weakness. All systems reviewed & are unremarkable except as noted in HPI and below PMFSH Past Medical History Medical History Diabetes mellitus GERD (gastroesophageal reflux disease) Hyperlipidemia Hypertension Obesity (BMI 30.0-34.9) Surgical History Surgical History History of esophagogastroduodenoscopy (EGD) (~2015) History of tonsillectomy (~2003) History of uvulopalatopharyngoplasty (~2003) Normal colonoscopy (~2015) Family History Family History Father Liver cancer Mother Multiple sclerosis Sibling Diabetes mellitus Social History Social History Smoking packs per day: 0.5 Smoking cigarettes per day: 10.0 Years smoked: 20 Smoking pack-years: 10.00 Smoking status: Former smoker Additional smoking assessment comments: He smoked 0.5 packs cigarettes per day for 20 years and quit in 2011. Alcohol intake: current Alcohol use details: 0.5 pint per day Substance use: never Additional living arrangements comments: He is single. He does not have any children. 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 Spiritual care concerns: No Exam Narrative: GENERAL: Well appearing, obese with BMI of 33.7, non-toxic, in no acute distress. HEAD: Normocephalic, atraumatic. NECK: Supple. No adenopathy, no masses. RESPIRATORY: Airway patent, respirations nonlabored. Clear to auscultation bilaterally, no rales, rhonchi, wheezing. CARDIOVASCULAR: Regular rate and rhythm without murmurs, rubs, or gallops. Radial pulses 2+ and equal bilaterally. MUSCULOSKELETAL: Moves all extremities. Tenderness to palpation over dorsal right hand and areas of third through fifth distal metacarpals. Mild swelling and bruising noted to this area. 1cm fairly superficial laceration in webspace between third and fourth digits. No active bleeding. Sensation intact. SKIN: Warm, dry, normal color. No rashes. NEURO: A&O X3. Speech clear. Cranial nerves II-XII grossly intact. Steady gait. No ataxic movements. PSYCHIATRIC: Appropriate mood and affect. Normal interaction. Course Vital Signs Vital signs: Vital Signs Perry
[2023-06-29] MEDS: AMOXICILLIN/CLAVULANATE K 875-125 MG TAB 1 TABLET PO (19:05)
== END 2023-06-29 19:05 | disposition home or self-care (01) ==
PROVIDERS: Emergency Provider Physician Assistant; PCP Registered Nurse
DX: S61.451A Open bite of right hand, initial encounter (principal); W54.0XXA Bitten by dog, initial encounter; E11.9 Type 2 diabetes mellitus without complications; I10 Essential (primary) hypertension; E78.5 Hyperlipidemia, unspecified; K21.9 Gastro-esophageal reflux disease without esophagitis; E66.9 Obesity, unspecified; Z68.33 Body mass index [BMI] 33.0-33.9, adult; Z79.4 Long term (current) use of insulin; Z87.891 Personal history of nicotine dependence
CPT/HCPCS: 73130; 99283; A9270

== ENCOUNTER 2024-09-05 14:00 | Outpatient (RCR) | payer OTHER, SELFPAY ==
--- NOTE | 2024-07-25 14:52 | OTOPEVAL1 ---
Assessment and note entered by Raciel Connelly, PAYAL/Andrew, CHT Evaluation Information Assessment Status Evaluation Diagnosis Left carpal tunnel syndrome ICD-10 Condition Codes (OT) M79.642,M25.532,Paresthesia of skin R20.2 Subjective Information Patient reports he was diagnosed with carpal tunnel symptoms 10 years ago, but he just recently (6 months ago) started noticing pain in his hand. He points to the carpal tunnel area and the thenar eminence of the thumb as the site of his pain. He states it does not shoot into his fingers . He reports fluctuating levels of paresthesia. He wears a brace at night. 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 He reports having a good desk set up with wrist supports. EMG 06/04/24 confirms left UE CTS, no evidence of ulnar neuropathy Reported Pain Level Pain Score 3: Self Report Additional Pain Score Comments Patient wears a wrist brace for relief. He takes ibuprofen a few times a week. Assessment OT Clinical Summary Patient referred to OT with dx of carpal tunnel syndrome. He presents with positive upper limb tension test bilaterally for the median nerve, more sensitive on the left. Positive Phalen's test on the left. Issued nerve glides and tendon glides for HEP. He completes with excellent understanding. Continued follow up indicated for HEP progression, use of modalities, and progressive therapeutic strengthening exercises to facilitate reduced pain, improved strength, and return to functioning. Plan of Care Interventions Therapeutic Exercise,Manual Therapy,Neuro Re- education,Therapeutic Activities,Hot Pack/Cold Pack,Ultrasound,Paraffin OT Services Indicated Yes Treatment Frequency and 1x/week for 6 visits Duration These treatments will address the objective and functional deficits as defined above. The patient will be advanced safely and appropriately in order for the patient to progress towards his/her prior level of function. Additional exercises will be introduced and as well as a comprehensive home exercise program upon discharge, if needed, ?to ensure carryover of functional gains achieved in the clinic. This treatment plan has been reviewed and agreement upon by the patient.
--- NOTE | 2024-07-25 14:52 | OPREHPOC ---
Outpatient Therapy Plan of Care This is a Multidisciplinary Plan of Care that may contain components documented by all disciplines (PT, OT, and ST.) OT Problem 1 OT Problem #1 Knowledge Deficit OT Goal 1 Goal / Goal Update 1. Patient to be independent with HEP. Target Visit 6 OT Problem 2 OT Problem #2 Pain OT Goal 1 Goal / Goal Update 1. Patient to report left wrist/hand pain at worst to no greater than 4/10. Target Visit 6 OT Problem 3 OT Problem #3 Impaired Flexibility OT Goal 1 Goal / Goal Update 1. Patient to be able to complete upper limb tension test for the median nerve without onset of symptoms in the left hand. OT Problem 4 OT Problem #4 Impaired Strength OT Goal 1 Goal / Goal Update To improve functional strength for ADLs: 1. Patient to improve left wrist strength to 4+/5 2. 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
--- NOTE | 2024-09-05 14:40 | OTOPDC ---
Assessment and note entered by Raciel Connelly, PAYAL/Andrew, CHT OT Discharge Note 09/05/24 Assessment Status Discharge Diagnosis Left carpal tunnel syndrome ICD-10 Condition Codes (OT) Pain in left hand M79.642,Pain in left wrist M25. 532,Paresthesia of skin R20.2 Subjective Information Patient reports he is doing well, making progress. States he is experiencing little to no pain. Reports his paresthesia has improved, noting that he has days of no paresthesia at all. 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 He is wearing a brace at night. Overall he is happy with his progress. 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 Reported Pain Level Pain Score 0: Self Report Additional Pain Score Comments Pt. reports only focal pain if he pushes on base of palm; no numbness 0/10 at rest 0.5/10 at worst Assessment OT Clinical Summary Patient referred to OT with dx of carpal tunnel syndrome. He has participated in 6 sessions focused on reducing pain and paresthesia in the left UE. He has progressed to negative upper limb tension test for the median nerve. Phalen's test was positive immediately at the start of care. Phalen's and reverse Phalen's were both negative today. Strength has progressed to normal limits. Reviewed HEP. Patient demonstrates excellent understanding of all materials. Patient to continue with HEP and splinting x1 more month. D/C OT. Plan of Care OT Services Indicated No
== END 2024-09-05 15:09 | disposition home or self-care (01) ==
LOC: ANHOT 14:00
PROVIDERS: PCP Registered Nurse
DX: G56.02 Carpal tunnel syndrome, left upper limb (principal)
CPT/HCPCS: 97018; 97035; 97110; 97165

== ENCOUNTER 2025-03-10 02:14 | Day surgery (SDC) | payer OTHER, SELFPAY ==
[2025-02-19 12:21] VITALS: BMI 31.9
--- OUTSIDE RECORDS SUMMARY | 2025-03-10 02:42 | XMS_ITS | Clinical Summary ---
Author Organization [facility] Address [address] [place] [address] Phone Care Team Providers Care Line Rider Name Role Phone Provider, None Primary Care Provider Unavailabl e Allergies No known active allergies Medications LOSARTAN POTASSIUM PO Take by mouth daily. Active Montelukast Sodium (SINGULAIR PO) Take by mouth daily. Active Sertraline HCl (ZOLOFT PO) Take by mouth daily. Active predniSONE 50 MG PO TABS Take 1 Tab by mouth daily. Use as directed. 5 Tab 0 5 Active budesonide-form oterol fumarate (SYMBICORT) 160-4.5 MCG/ACT IN AERO take 2 Puffs by inhalation 2 times daily. 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 Gender Identity Not on file Sexual Orientation Not on file Last Filed Vital Signs Vital Sign Reading Time Taken Comments Blood Pressure 141/75 11/26/2014 9:15 AM CDT Pulse 117 11/26/2014 9:15 AM CDT Temperature 36.5 C (97.7 F) 11/26/2014 5:32 AM CDT Respiratory Rate 20 11/26/2014 9:15 AM CDT Oxygen Saturation 93% 11/26/2014 9:15 AM CDT Inhaled Oxygen Concentration - - Weight 99.8 kg (220 lb) 11/26/2014 5:32 AM CDT Height 172.7 cm (5' 8) 11/26/2014 5:32 AM CDT Body Mass Index 33.45 11/26/2014 5:32 AM CDT Plan of Treatment Health Maintenance Due Date Last Done Comments Hepatitis C Virus (HCV) Screening 1974 TdaP Immunization 1974 Hepatitis B Immunization (1 of 3 - 19+ 3-dose series) 1993 Cologuard 2019 Colonoscopy 2019 Colorectal Cancer Screening 2019 Immunochemical Fecal Occult Blood 2019 SARS-COV-2 Immunization (1 - 2023-25 season) 2024 Pneumococcal Immunization (5 0+ years) (1 of 1 - PCV) 2024 Zoster Immunization (1 of 2) 2024 Influenza Immunization (Seas on Ended) 2025 Respiratory Syncytial Virus (RSV) Immunization (Adult) (1 - 1-dose 75+ series) 2049 Human Papillomavirus (HPV) Immunization Aged Out No longer eligible b ased on patient's age to complete this topic Meningococcal Immunization (ACWY) Aged Out No longer eligible based on patient's age to complete this topic Rotavirus Immunization Aged Out No lo nger eligible based on patient's age to complete this topic Insurance [facility] Care Teams Line Rider Relationship Specialty Start Date End Date Provider, None [place] PCP - General 01/11/10
--- OUTSIDE RECORDS SUMMARY | 2025-03-10 02:42 | XMS_ITS | Clinical Summary ---
Author Organization [facility] [employer] Address [address] [place] [place] [address] Care Team Providers Care Welfare Visitor Name Role Phone RosalinaVeronica SURVEY SUPERVISOR-CONCRETE FINISHER APPRENTICE Primary Care Provider Source Comments [employer] [facility] [employer] [facility],non-owned Affiliates and Associated Physician Practices is amultiple site organization consisting of ambulatory clinics and hospital sitesin [place], [place], [place]. This disclosure is being madepursuant to the Care Everywhere program and may not contain all information available regarding this patient. Last updated 18.[employer] [facility] [employer] [facility] Allergies No known active allergies Medications * Be aware that medications may not be up to date on this document. Alwaysverify current medications with the patient. Albuterol Sulfate (PROAIR HFA IN) Active LISINOPRIL PO Take 5 mg by mouth Active Insulin Regular Human (NOVOLIN R IJ) Active pantoprazole EC (Protonix) 40 MG tablet 2 Active rosuvastatin (Crestor) 10 MG tablet Take 1 (one) tablet by mouth once daily 3 Active sertraline (Zoloft) 25 MG tablet Take 3 (three) tablets by mouth once daily Active acetaminophen (Tylenol) 325 MG tablet Take 2 (two) tablets by mouth every 6 hours Maximum allowable Acetaminophen amount = 4 Grams (4000 mg) / 24 hours. 3 Active docusate sodium (Colace) 100 MG capsule Take 1 (one) capsule by mouth 2 times daily 30 capsule 3 Active methocarbamol (Robaxin) 500 MG tablet Take 1 (one) tablet by mouth every 6 hours 30 tablet 3 Active ondansetron, disintegrating, (Zofran ODT) 4 MG tablet Take 1 (one) tablet by mouth every 6 hours as needed for Nausea/Vomiting Allow tablet to dissolve on the tongue 30 tablet 3 Active oxyCODONE, immediate release, (Roxicodone) 5 MG tabletIndicatio ns:S/P partial gastrectomy Take 1 (one) tablet by mouth every 4 hours as needed 12 tablet 3 Active polyethylene glycol 3350 (Miralax) 17 g packet Take 17 (seventeen) g by mouth once daily as needed for Constipation 30 packet 3 Active Active Problems Problem Noted Date Diagnosed Date Gastric mass 01/12/2023 Pancreatic mass 06/09/2022 Social History Tobacco Use Types Packs/Day Years Used Date Smoking Tobacco: Former Cigarettes Q uit: 2009 Smokeless Tobacco: Never Tobacco Cessation:Counseling Given: Not Answered Alcohol Use Standard Drinks/Week Comments Yes 0 (1 standard drink = 0.6 oz pure alcohol) 1/2 pint vodka, one beer on the week end AUDIT-C Answer Date Recorded Q1: How often do you have a drink containing alc ohol? 2-3 times a week 01/12/2023 Average Number of Drinks Not on file 023 Frequency of Binge Drinking Not on file 01/2023 Hunger Vital Sign Answer Date Recorded Within the past 12 months, y ou worried that your food would run out before you got the money to buy more. Patient declined Within the past 12 months, t he food you bought just didn't last and you didn't have money to get more. 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 Gender Identity Not on file Sexual Orientation Not on file Last Filed Vital Signs Vital Sign Reading Time Taken Comments Blood Pressure 157/110 08/18/2023 8:01 AM ANGLE SHEAR OPERATOR Pulse 83 08/18/2023 8:01 AM ANGLE SHEAR OPERATOR Temperature 36.4 C (97.5 F) 08/18/2023 5:34 AM ANGLE SHEAR OPERATOR Respiratory Rate 18 08/18/2023 8:01 AM ANGLE SHEAR OPERATOR Oxygen Saturation 94% 08/18/2023 8:01 AM ANGLE SHEAR OPERATOR Inhaled Oxygen Concentration - - Weight 95.8 kg (211 lb 4.8 oz) 01/12/2023 5:52 A M CDT Height 172.7 cm (5' 8) 01/12/2023 5:52 AM CDT Body Mass Index 32.13 01/12/2023 5:52 AM CDT Plan of Treatment Health Maintenance Due Date Last Done Comments COLOGUARD (AGES 45-75) - COLON CA SCREENING 1974 COLON MONITORING 1974 COLONOSCOPY - COLON CA SCREENING 1974 CT COLONOGRAPHY - COLON CA SCREENING 1974 Colorectal Cancer Screening 1974 FIT - COLON CA SCREENING 1974 FLEX SIG - COLON CA SCREENING 1974 HIV SCREENING 1989 HEPATITIS C SCREENING 07/14/1992 DTAP/TDAP/TD VACCINES (1 - Tdap) 1993 HEPATITIS B VACCINE (1 of 3 - 19+ 3-dose series) 1993 COVID-19 VACCINE (1 - season) 2024 PNEUMOCOCCAL VACCINE 50+ (1 of 1 - PCV) 2024 ZOSTER VACCINE (1 of 2) 2024 DEPRESSION SCREENING 09/10/2024 INFLUENZA VACCINE (Season Ended) 2025 05/30/2023, 06/21/2022, 05/31/2021, Additional history exists SCREENING FOR DIABETES 08/18/2026 , 08/07/2023, 07/05/2023, Additional history exists HIB VACCINE Aged Out No longer eligi ble based on patient's age to complete this topic HPV VACCINE Aged Out No longer eligi ble based on patient's age to complete this topic MENINGOCOCCAL (Group B) VACCINE SHARED DECISION-MAKING Aged Out No longer eligible based on patient's age to complete this topic MENINGOCOCCAL GROUPS A/C/Y/W VACCINE Aged Out No longer eligible based on patient's age to complete this topic Procedures Procedure Name Priority Date/Time Associated Diagnosis Comments COMPREHENSIVE METABOLIC PANEL STAT 08/18/2023 5:48 AM ANGLE SHEAR OPERATOR from Last 3 Months or Most Recently Relevant to Health Maintenance Results * (ABNORMAL) COMPREHENSIVE METABOLIC PANEL (08/18/2023 5:48 AM ANGLE SHEAR OPERATOR) Glucose 212(H) 70 - 105 mg/dL 08/18/2023 6:10 AM [facility] Sodium 140 136 - 145 mmol/L 08/18/2023 6:10 AM [facility] Potassium 3.5 3.5 - 5.1 mmol/L 08/18/2023 6:10 AM [facility] Chloride 105 98 - 107 mmol/L 08/18/2023 6:10 AM [facility] CO2 21(L) 22 - 29 mmol/L 08/18/2023 6:10 AM [facility] Calcium 10.3 8.4 - 10.4 mg/dL 08/18/2023 6:10 AM [facility] Anion Gap 14 6 - 16 mmol/L 08/18/2023 6:10 AM [facility] BUN 11 5.3 - 18.7 mg/dL 08/18/2023 6:10 AM [facility] Creatinine 0.98 0.72 - 1.25 mg/dL 08/18/2023 6:10 AM [facility] Alkaline Phosphatase 68 40 - 150 U/L 08/18/2023 6:10 AM [facility] ALT 72(H) 0 - 55 U/L 08/18/2023 6:10 AM [facility] AST 37(H) 5 - 34 U/L 08/18/2023 6:10 AM [facility] Protein Total 7.8 6.4 - 8.3 gm/dL 08/18/2023 6:10 AM [facility] Albumin 4.7 3.4 - 5.0 gm/dL 08/18/2023 6:10 AM [facility] Bilirubin Total 0.6 0.2 - 1.2 mg/dL 08/18/2023 6:10 AM [facility] eGFR by CKD-EPI >90 >=90 mL/min/1.7 3 m2 08/18/2023 6:10 AM [facility] Blood BLOOD SPECIMEN / Unknown Venipuncture / Unknown 08/18/2023 5:48 AM ANGLE SHEAR OPERATOR 08/18/2023 5:53 AM [facility] us John Matos MD LAB - CHEMISTRY ORDERABLES Fin al Result [facility] [id number] [place] [address] from Last 3 Months or Most Recently Relevant to Health Maintenance Insurance [employer] Advance Directives * Full Code (Latest Code Status on File) Date Activated Date Inactivated Comments 01/12/2023 10:57 AM 01/14/2023 5:13 PM * Full Code Date Activated Date Inactivated Comments 06/09/2022 9:34 PM 06/11/2022 5:06 PM Care Teams Welfare Visitor Relationship Specialty Start Date End Date Veronica Romano APRN-LUIS A [address] [place] [address] PCP - General Nurse Practitioner 11/15/22
--- OUTSIDE RECORDS SUMMARY | 2025-03-10 02:42 | XMS_ITS | Continuity of Care Document ---
Author Organization [facility] Address [address] [place] [id number] Phone Care Team Providers Care Manager Of [employer] Name Role Phone Michael Clemens MD Unavailable Unavailable Allergies, Adverse Reactions, Alerts Substance Reaction Status Criticality No Known Allergies Active No Inform ation Medications Medication Instructions Dosage Effective Dates (start - stop) Status Comments losartan 100 mg-hydrochlorothiazi de 12.5 mg tablet take 1 tablet by oral route every day 1.00 tablet - Active pantoprazole 40 mg tablet,delayed release take 1 tablet by oral route every day 40 MG - Active sertraline 100 mg tablet take 1 tablet by oral route every day 100 MG - Active montelukast 10 mg tablet take 1 tablet by oral route every day in the evening 10 MG - Active Symbicort 160 mcg-4.5 mcg/actuation HFA aerosol inhaler inhale 2 puff by inhalation route every day in the morning - Active melatonin 300 mcg tablet take 2 daily by mouth - Active multivitamin tablet take one daily by mouth - Active Procedures Procedure Date Init Inpt Cons New/est Mod-hi 6 Ugi Endo; W/bx 1/mx Colonoscopy Flex; W/bx 1/mx ASC Facility Charge ASC Facility Charge Level Iv-surg Path Gross/t, Lvl IV Special Stains; Grp I [place] Offic Cons New/estab Mod Bld Ct; Hg & Platelet Ct Autom 15 Prothrombin Time Comp Metabolic Panel Ag-immunoassay; Hep B Surface 5 Hepatitis C Antibody; Advance Directives Directive Yes / No Effective Date File Name No Information Encounters Encounter Description Practice Location Reason(s) For Visit Diagnoses Date Provider Providers Copied on Encounter [facility] [employer], [address] [place] [address], [id number] tel:[phone] [facility] No Information 6 Jayleen Rodriguez. [address] [place] [address], [id number], [place]. tel:[phone] [facility] [employer], [address] [place] [address], [id number] tel:[phone] [facility] Alcohol induced acute pancreatitis 6 Jesica Portillo. [address] [place] [address], [id number], [place]. tel:[phone] Init Inpt Cons New/est Mod-hi [facility] [employer], [address] [place] [address], [id number] tel:[phone] [facility] [employer] No Information 6 Jesica Portillo. [address] [place] [address], [id number], [place]. tel:[phone] Referring Provider: Aravind Ricardo MD, [facility] [address], [place], [address]. tel:[phone] [facility] [employer], [address] [place] [address], [id number] tel:[phone] [facility] [employer] Elevated liver function 5 Enrrique Snell. [address] [place] [address], [id number], [place]. tel:[phone] [facility], [address] [place] [address], [id number] tel:[phone] [facility] [employer] GERDColon polypHemorrho idsDisorder, gastroduodena l NOSErosion IntestineGast ritis NEC w/o hemorrhage 5 Saqib Fink. [address] [place] [address], [id number], [place]. tel:[phone] Referring Provider: Aravind Ricardo MD, [address], [place], [address]. tel:[phone] [facility], [address] [place] [address], [id number] tel:[phone] [facility] No Information [facility]. [address] [place] [address], [id number], [place]. tel:[phone] Referring Provider: Aleks Bernal, [address] [place] [address], [id number] . tel:[phone] [facility], [address] [place] [address], [id number] tel:[phone] [facility] No Information 5 Saqib Fink. [address] [place] [address], [id number], [place]. tel:[phone] Referring Provider: Aravind Ricardo MD, [address], [place], [address]. tel:[phone] Offic Cons New/estab Mod [facility], [address] [place] [address], [id number] tel:[phone] [facility] upper GI complaints (chief complaint) Rectal bleedingGERDA lcohol abuseAbnormal ultrasound of abdomen 5 Enrrique CRANE MAN Alis. [address] [place] [address], [id number], [place]. tel:[phone] Referring Provider: Aravind Ricardo MD, [address], [place], [address]. tel:[phone] [facility], [address] [place] [address], [id number] tel:[phone] [facility] No Information 5 Enrrique CRANE MAN Alis. [address] [place] [address], [id number], [place]. tel:[phone] Referring Provider: Aravind Ricardo MD, [address], [place], [address]. tel:[phone] Family History Family Member Type Diagnosis Age At Onset Problem (finding) Family history of parents are living, pt has 2 brothers and a sister Problem (finding) Family history of no family hx of colon cancer or colon polyps Immunizations Vaccine Date Status Comments Flu (split) (3 yrs or older) administered Source: Other Provider Pneumo (2 yrs or older)(PPV) administered Source: Other Provider Payers Payer name Insurance type Covered democrat ID Authoriza tion(s) [facility] PPO BL [id number] Social History Type Description Quantity Date Captured Comments Sex Male Smoking Status No Information Chief Complaint And Reason For Visit No Information Reason For Referral Reason For Referral No Information Plan Of Treatment Date Type Action Status Patient Education Colonoscopy: Before You r Procedure completed Patient Education Upper GI Endoscopy: Bef ore Your Proced completed History Of Present Illness Encounter Date Complaint History Of Prese nt Illness upper GI complaints Mr Samy desai is a 39 year old gentleman referred to our office for nausea, vomiting, abdominal apin, and rectal bleeding. Pt has a history of HTN, Asthma, GERD, and prior tonsillectomy/uvelectomy. He was seen by his PCP for nausea and epigastric pain. Abdominal ultrasound on 09/25/14 showed diffuse hepatocellular disease and fatty infiltration. Normal gallbladder and no biliary dilatation. He was instructed to discontinue drinking and seek alcohol counseling. Today, he states that since February he has been experiencing intermittent episodes of rctal bleeding, blood in the toilet, he denies hemorrhoids, symptoms would occur for a few days then resolve spontaneously and reoccur a few months later. He also has seen dark, nonsticky stools as well, which were self limiting, associated with episodes of nausea, vomiting without hematemesis. he has felt that he has had the flu. Positive RUQ/epigastric pain. He has been on Zantac for years to control his heartburn and the last years has been on Pantprazole daily. Admits to nocturnal ruflux, with choking sensation. He drinks 1 20oz coffee a day, is a nonsmoker, and admits to at least 6 bourbon drinks/day a several beers. No family history of gastric/colon carcinomas. Functional Status Date Functional Assessmen t No Information Instructions Date Instruction Additional Infor mation No Information Assessments Type Assessment Date No Information Patient Care Teams Name Effective Dates (start - stop) Status Members No Information
[2025-03-10 06:43] VITALS: BP 136/90; PULSE 95; RESP 18; TEMP 36.4; O2SAT 99
[2025-03-10] MEDS: LACTATED RINGERS 1,000 ML 150 ML IV CONT (06:56)
--- NOTE | 2025-03-10 07:52 | WPDANESEPPF ---
Anes - Initial Pre Proc Eval Procedure: Operation Date: 03/10/25 08:00 Proposed Procedures p Screening Colonoscopy - Hay Bonilla MD Date/Time: 03/10/25 07:52 Surgeon: Hay Bonilla MD Pre Op Diagnosis: Encounter for screening for malignant neoplasm of Patient Data Age: 49 Gender: M Height: 1.73 m Weight: 94.8 kg Last Vital Signs Temp 36.4 C 03/10/25 06:43 Pulse 95 03/10/25 06:43 Resp 18 03/10/25 06:43 BP 136/90 03/10/25 06:43 Pulse Ox 99 03/10/25 06:43 O2 Del Method Room Air 03/10/25 06:43 Allergies Allergy/AdvReac Type Severity Reaction Status Date / Time No Known Allergies Allergy Verified 03/10/25 06:41 Home Medications ?Medication ?Instructions ?Recorded ?Confirmed ?Type lisinopril 20 1 tablet PO DAILY 12/03/20 02/19/25 History mg-hydrochlorothiazide 12.5 mg tablet pantoprazole 40 mg tablet,delayed 40 mg PO DAILY 12/03/20 02/19/25 History release insulin regular human 100 unit/mL 1 sliding scale dose subcut 02/20/22 02/19/25 History injection solution (Novolin R USEASDIRECTD Regular U-100 Insulin) Laboratory Tests 03/10/25 06:53 POC Capillary Glucose 207 H mg/dl (65-105) Patient hx anesthesia problems: none Family hx anesthesia problems: none Results Review: All pre-operative results and documents have been reviewed as part of the pre-operative evaluation. [facility] Past Medical History Medical History GERD (gastroesophageal reflux disease) Hyperlipidemia Obesity (BMI 30.0-34.9) Diabetes mellitus Hypertension Surgical History Surgical History History of esophagogastroduodenoscopy (EGD) (~2015) Normal colonoscopy (~2015) History of uvulopalatopharyngoplasty (~2003) History of tonsillectomy (~2003) Family History Family History Father Liver cancer Mother Multiple sclerosis Sibling Diabetes mellitus Social History Social History Smoking packs per day: 0.5 Smoking cigarettes per day: 10.0 Years smoked: 20 Smoking pack-years: 10.00 Smoking status: Former smoker Tobacco type: cigarettes Additional smoking assessment comments: He smoked 0.5 packs cigarettes per day for 20 years and quit in 2011. Alcohol intake: current Drinks per week: 10 Alcohol use details: 0.5 pint per day Substance use: never Substance use type: does not use Living arrangements: alone Additional living arrangements comments: He is single. He does not have any children. 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 Spiritual care concerns: No Anes - Eval Final PreProcedure Day of Procedure 03/10/25 07:52 Patient weight: obese Heart: regular rate and rhythm Lungs: decreased breath sounds Airway: Mallampati scale class II Neurological: alert and oriented Last oral intake: >/= 8 hours ASA classification: III Emergent: no Anesthetic plan: proceed Anesthesia type and monitoring: general GIVS and standard monitoring Results Review: All pre-operative results and documents have been reviewed as part of the pre-operative evaluation. Informed Consent: The patient's anesthetic plan and its attendant risks and benefits were discussed with the patient/family/POA. Questions were solicited and answers provided to the satisfaction of the patient/family/POA.
--- NOTE | 2025-03-10 07:56 | P.HP_ITS ---
H&P: HPI History of Present Illness Date/Time: 03/10/25 07:56 Chief Complaint: Screening colonoscopy Narrative: This is the patient's first colonoscopy. There are no GI symptoms and there is no family history of colorectal cancer. Review of Systems Review of Systems: All systems reviewed & are unremarkable except as noted in HPI and below PMFSH Past Medical History Medical History GERD (gastroesophageal reflux disease) Hyperlipidemia Obesity (BMI 30.0-34.9) Diabetes mellitus Hypertension Surgical History Surgical History History of esophagogastroduodenoscopy (EGD) (~2015) Normal colonoscopy (~2015) History of uvulopalatopharyngoplasty (~2003) History of tonsillectomy (~2003) Family History Family History Father Liver cancer Mother Multiple sclerosis Sibling Diabetes mellitus Social History Social History Smoking packs per day: 0.5 Smoking cigarettes per day: 10.0 Years smoked: 20 Smoking pack-years: 10.00 Smoking status: Former smoker Tobacco type: cigarettes Additional smoking assessment comments: He smoked 0.5 packs cigarettes per day for 20 years and quit in 2011. Alcohol intake: current Drinks per week: 10 Alcohol use details: 0.5 pint per day Substance use: never Substance use type: does not use Living arrangements: alone Additional living arrangements comments: He is single. He does not have any children. 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 Spiritual care concerns: No Meds Home Medications and Allergies Home Medications ?Medication ?Instructions ?Recorded ?Confirmed ?Type lisinopril 20 1 tablet PO DAILY 12/03/20 02/19/25 History mg-hydrochlorothiazide 12.5 mg tablet pantoprazole 40 mg tablet,delayed 40 mg PO DAILY 12/03/20 02/19/25 History release insulin regular human 100 unit/mL 1 sliding scale dose subcut 02/20/22 02/19/25 History injection solution (Novolin R USEASDIRECTD Regular U-100 Insulin) Allergies Allergy/AdvReac Type Severity Reaction Status Date / Time No Known Allergies Allergy Verified 03/10/25 06:41 Vital Signs Vital Signs - 24 hr 03/10/25 06:43 Temperature 97.6 F Pulse Rate 95 Respiratory Rate 18 Blood Pressure 136/90 Pulse Oximetry 99 Oxygen Delivery Room Air Exam Const: General: cooperative and healthy appearing Resp: Effort & Inspection: normal respiratory effort and able to speak in complete sentences Auscultation: clear to auscultation bilaterally Cardio: Rate: regular rate Rhythm: regular rhythm GI: Inspection: normal to inspection GI Palp: No No hepatosplenomegaly present Auscultation: normal bowel sounds Rectal Exam: deferred Skin: General skin exam: normal color Psych: Appearance: grossly normal Mental Status: mental status grossly normal Assessment and Plan Assessment and plan (1) Encounter for screening colonoscopy: Code(s): Z12.11 - Encounter for screening for malignant neoplasm of colon Status: Acute Assessment and Plan: The patient is deemed a good candidate for the procedure. Consent signed. Will proceed.
[2025-03-10 08:19] VITALS: BP 135/83; PULSE 84; RESP 27; O2SAT 97
[2025-03-10 08:29] VITALS: BP 129/84; PULSE 79; RESP 25; O2SAT 99
[2025-03-10 08:39] VITALS: BP 132/90; PULSE 77; RESP 24; O2SAT 98
== END 2025-03-10 08:45 | disposition home or self-care (01) ==
PROVIDERS: PCP Registered Nurse; Referring Provider Registered Nurse; Visit Provider Internal Medicine Gastroenterology
PROC: 0DJD8ZZ Inspection of Lower Intestinal Tract, Via Natural or Artificial Opening Endoscopic (ICD-10-PCS; CPT 45378; principal; 2025-03-10 08:00)
DX: Z12.11 Encounter for screening for malignant neoplasm of colon (principal); K64.8 Other hemorrhoids; E11.9 Type 2 diabetes mellitus without complications; Z87.891 Personal history of nicotine dependence; E66.9 Obesity, unspecified; Z68.31 Body mass index [BMI] 31.0-31.9, adult
CPT/HCPCS: 45378; 82948; J2704; J7120